=== PATIENT | male | born 1940 | race Caucasian/White ===

== ENCOUNTER → 2023-10-05 10:16 | Outpatient (REF) | payer MEDICARE, OTHER, SELFPAY ==
[2023-10-05 10:51] LABS: % Basophils 0.7 % (0-2); % Eosinophils 2.8 % (0-6); % Immature Granulocytes 0.3 % (0-0.5); % Lymphocytes 12.6 % (20.5-51.1); % Monocytes 6.7 % (1.7-9.3); % Neutrophils 76.9 % (42.2-75.2); Absolute Basophils 0.1 10^3/uL (0-0.2); Absolute Eosinophils 0.3 10^3/uL (0-0.7); Absolute Lymphocytes 1.5 10^3/uL (1.2-3.4); Absolute Monocytes 0.8 10^3/uL (0.1-0.6); Absolute Neutrophils 8.9 10^3/uL (1.4-6.5); Hematocrit 41.8 % (39.0-52.0); Hemoglobin 13.4 g/dL (13.0-18.0); Mean Corp Hgb Conc. 32.1 g/dL (33.0-37.0); Mean Corpuscular Hgb 32.2 pg (27.0-31.0); Mean Corpuscular Volume 100.5 fL (80.0-94.0); Mean Platelet Volume 9.8 fL (7.4-10.4); Nucleated Red Blood Cells % 0 % (-); Platelet Count 291 10^3/uL (130-400); Red Blood Cell Count 4.16 10^6/uL (4.70-6.10); Red Cell Dist. Width 13.8 % (11.5-14.5); White Blood Cell Count 11.6 10^3/uL (4.8-10.8)
[2023-10-05 11:11] LABS: ALT (SGPT) 18 U/L (0-50); AST (SGOT) 26 U/L (17-59); Alkaline Phosphatase 105 U/L (38-126); Blood Urea Nitrogen 35 mg/dl (9-20); Calcium 9.6 mg/dl (8.4-10.2); Carbon Dioxide 30 mmol/L (22-30); Chloride 102 mmol/L (98-107); Glucose 95 mg/dl (70-99); Potassium 4.1 mmol/L (3.5-5.1); Sodium 140 mmol/L (135-145); Total Bilirubin 0.8 mg/dl (0.2-1.3); Total Protein 6.4 g/dl (6.3-8.2); eGFR > 60.00
[2023-10-05 11:28] LABS: Albumin 3.8 g/dl (3.5-5.0)
== END ==
LOC: REG 10:16
PROVIDERS: ATTENDING PHYSICIAN Internal Medicine Rheumatology; FAMILY PHYSICIAN Internal Medicine
DX: E55.9 Vitamin D deficiency, unspecified (principal); G60.9 Hereditary and idiopathic neuropathy, unspecified; J84.9 Interstitial pulmonary disease, unspecified; M11.20 Other chondrocalcinosis, unspecified site; M19.041 Primary osteoarthritis, right hand; M75.52 Bursitis of left shoulder; R76.8 Other specified abnormal immunological findings in serum; Z11.1 Encounter for screening for respiratory tuberculosis; Z11.59 Encounter for screening for other viral diseases; Z68.28 Body mass index [BMI] 28.0-28.9, adult; Z79.899 Other long term (current) drug therapy
CPT/HCPCS: 36415; 80053; 85025; 86140

== ENCOUNTER → 2023-11-02 10:19 | Outpatient (REF) | payer MEDICARE, OTHER, SELFPAY ==
[2023-11-02 10:53] LABS: % Basophils 0.6 % (0-2); % Eosinophils 1.7 % (0-6); % Immature Granulocytes 0.6 % (0-0.5); % Lymphocytes 10.2 % (20.5-51.1); % Monocytes 4.7 % (1.7-9.3); % Neutrophils 82.2 % (42.2-75.2); Absolute Basophils 0.1 10^3/uL (0-0.2); Absolute Eosinophils 0.2 10^3/uL (0-0.7); Absolute Immature Granulocytes 0.1 10^3/uL (0-0.05); Absolute Lymphocytes 1.3 10^3/uL (1.2-3.4); Absolute Monocytes 0.6 10^3/uL (0.1-0.6); Absolute Neutrophils 10.7 10^3/uL (1.4-6.5); Hematocrit 43.2 % (39.0-52.0); Hemoglobin 13.8 g/dL (13.0-18.0); Mean Corp Hgb Conc. 31.9 g/dL (33.0-37.0); Mean Corpuscular Hgb 31.8 pg (27.0-31.0); Mean Corpuscular Volume 99.5 fL (80.0-94.0); Mean Platelet Volume 10.1 fL (7.4-10.4); Nucleated Red Blood Cells % 0 % (-); Platelet Count 228 10^3/uL (130-400); Red Blood Cell Count 4.34 10^6/uL (4.70-6.10); Red Cell Dist. Width 14.2 % (11.5-14.5)
[2023-11-02 11:25] LABS: ALT (SGPT) 18 U/L (0-50); AST (SGOT) 26 U/L (17-59); Albumin 4.4 g/dl (3.5-5.0); Alkaline Phosphatase 66 U/L (38-126); Blood Urea Nitrogen 39 mg/dl (9-20); Calcium 9.5 mg/dl (8.4-10.2); Carbon Dioxide 27 mmol/L (22-30); Chloride 105 mmol/L (98-107); Glucose 88 mg/dl (70-99); Sodium 142 mmol/L (135-145); Total Bilirubin 0.7 mg/dl (0.2-1.3); eGFR > 60.00
[2023-11-02 11:30] LABS: Potassium 4.1 mmol/L (3.5-5.1)
== END ==
LOC: REG 10:19
PROVIDERS: ATTENDING PHYSICIAN Internal Medicine Rheumatology; FAMILY PHYSICIAN Internal Medicine
DX: J84.9 Interstitial pulmonary disease, unspecified (principal); Z79.899 Other long term (current) drug therapy
CPT/HCPCS: 36415; 80053; 85025

== ENCOUNTER → 2023-11-29 09:07 | Outpatient (REF) | payer MEDICARE, OTHER, SELFPAY | LOC: HWRAD 09:07 | PROVIDERS: ATTENDING PHYSICIAN Internal Medicine Critical Care Medicine; FAMILY PHYSICIAN Internal Medicine | DX: J84.9 Interstitial pulmonary disease, unspecified (principal) | CPT/HCPCS: 71250 ==

== ENCOUNTER → 2023-12-06 08:41 | Outpatient (REF) | payer MEDICARE, OTHER, SELFPAY ==
[2023-12-06 09:45] LABS: % Basophils 0.5 % (0-2); % Eosinophils 2.5 % (0-6); % Immature Granulocytes 0.5 % (0-0.5); % Lymphocytes 17.5 % (20.5-51.1); Absolute Basophils 0.1 10^3/uL (0-0.2); Absolute Eosinophils 0.3 10^3/uL (0-0.7); Absolute Immature Granulocytes 0.1 10^3/uL (0-0.05); Absolute Lymphocytes 1.9 10^3/uL (1.2-3.4); Absolute Monocytes 0.7 10^3/uL (0.1-0.6); Absolute Neutrophils 8.1 10^3/uL (1.4-6.5); Hematocrit 43.3 % (39.0-52.0); Hemoglobin 13.8 g/dL (13.0-18.0); Mean Corp Hgb Conc. 31.9 g/dL (33.0-37.0); Mean Corpuscular Hgb 31.3 pg (27.0-31.0); Mean Corpuscular Volume 98.2 fL (80.0-94.0); Mean Platelet Volume 10.6 fL (7.4-10.4); Nucleated Red Blood Cells % 0 % (-); Platelet Count 200 10^3/uL (130-400); Red Blood Cell Count 4.41 10^6/uL (4.70-6.10); Urine Albumin Negative (Neg - Trace); Urine Bilirubin Negative (Negative); Urine Character Clear (Clear); Urine Color Yellow; Urine Glucose Negative (Negative); Urine Ketone Negative (Negative); Urine Leukocyte Negative (Negative); Urine Nitrite Negative (Negative); Urine Occult Blood Negative (Negative); Urine Specific Gravity 1.015 (<1.030); Urine Urobilinogen Negative (Neg - 1+); White Blood Cell Count 11.1 10^3/uL (4.8-10.8)
[2023-12-06 10:35] LABS: ALT (SGPT) 19 U/L (0-50); AST (SGOT) 26 U/L (17-59); Albumin 4.1 g/dl (3.5-5.0); Alkaline Phosphatase 61 U/L (38-126); Blood Urea Nitrogen 37 mg/dl (9-20); Calcium 9.3 mg/dl (8.4-10.2); Carbon Dioxide 28 mmol/L (22-30); Chloride 104 mmol/L (98-107); Glucose 78 mg/dl (70-99); HDL Cholesterol 84 mg/dl; LDL Cholesterol, Calculated 41 mg/dl; Potassium 4.5 mmol/L (3.5-5.1); Sodium 139 mmol/L (135-145); Total Bilirubin 0.7 mg/dl (0.2-1.3); Total Cholesterol 149 mg/dl (50-199); Total Protein 6.6 g/dl (6.3-8.2); Triglyceride 124 mg/dl (10-149); Very Low Density Lipoprotein 24 mg/dl (0-30); eGFR > 60.00
[2023-12-07 00:35] LABS: Complement C3 123 mg/dl (88-165)
[2023-12-07 16:04] LABS: ds-DNA Ab, IgG Reflex To Titer 6 IU (0-24)
== END ==
LOC: REG 08:41
PROVIDERS: ATTENDING PHYSICIAN Internal Medicine; FAMILY PHYSICIAN Internal Medicine Rheumatology
DX: E55.9 Vitamin D deficiency, unspecified (principal); G60.9 Hereditary and idiopathic neuropathy, unspecified; J84.9 Interstitial pulmonary disease, unspecified; M11.20 Other chondrocalcinosis, unspecified site; M19.041 Primary osteoarthritis, right hand; M19.90 Unspecified osteoarthritis, unspecified site; M75.52 Bursitis of left shoulder; R76.8 Other specified abnormal immunological findings in serum; Z11.1 Encounter for screening for respiratory tuberculosis; Z11.59 Encounter for screening for other viral diseases; Z68.27 Body mass index [BMI] 27.0-27.9, adult; Z79.899 Other long term (current) drug therapy; E78.2 Mixed hyperlipidemia; I10 Essential (primary) hypertension; Z68.26 Body mass index [BMI] 26.0-26.9, adult; Z00.00 Encounter for general adult medical examination without abnormal findings
CPT/HCPCS: 36415; 80053; 80061; 81003; 85025; 86140; 86160; 86225

== ENCOUNTER 2023-12-27 06:13 | Day surgery (SDC) | payer MEDICARE, OTHER, SELFPAY ==
[2023-12-27] VITALS (7 sets, daily range): BP systolic 126–147; BP diastolic 67–104; BMI 25.8
== END 2023-12-27 11:04 | disposition home or self-care (01) ==
LOC: GI 06:13
PROVIDERS: ATTENDING PHYSICIAN Internal Medicine
DX: R91.8 Other nonspecific abnormal finding of lung field (principal); J18.9 Pneumonia, unspecified organism
CPT/HCPCS: 31624; 87070; 87102; 87116; 87205; 88112

== ENCOUNTER → 2024-01-09 13:26 | Outpatient (REF) | payer MEDICARE, OTHER, SELFPAY ==
[2024-01-09 14:07] LABS: Hematocrit 44.7 % (39.0-52.0); Hemoglobin 14.7 g/dL (13.0-18.0); Mean Corp Hgb Conc. 32.9 g/dL (33.0-37.0); Mean Corpuscular Hgb 31.4 pg (27.0-31.0); Mean Corpuscular Volume 95.5 fL (80.0-94.0); Mean Platelet Volume 9.9 fL (7.4-10.4); Platelet Count 228 10^3/uL (130-400); Red Blood Cell Count 4.68 10^6/uL (4.70-6.10); White Blood Cell Count 12.5 10^3/uL (4.8-10.8)
== END ==
LOC: SDSPAT 13:26
PROVIDERS: ATTENDING PHYSICIAN Specialist; FAMILY PHYSICIAN Internal Medicine
DX: Z01.818 Encounter for other preprocedural examination (principal)
CPT/HCPCS: 36415; 85027; 93005

== ENCOUNTER 2024-01-26 06:13 | Day surgery (SDC) | payer MEDICARE, OTHER, SELFPAY ==
--- NOTE | 2023-12-20 10:52 | CM ---
Addendum entered by Lilibeth Rodarte 01/25/24 11:54:
Spoke again with Elli at [facility]. She confirmed that she is holding a bed for patient at [facility]. She requested that additional clinical be sent to her through [facility] after surgery. She requested a 1:00 discharge time.
Report: [phone] [id number]

Call placed to patient and his . Update provided. They confirm that [facility] is their facility of choice if no bed at [facility]. plans to transport patient to [place] and is aware of requested 1:00 discharge time.
Addendum entered by Lilibeth Rodarte 01/23/24 12:31:
Spoke with Jessica at [facility]. She states that a financial application will need to be completed before they can say whether they can accept patient.
Call placed to [facility]. Spoke with Elli, admissions liaison ([phone]). Discussed referral. She states that there will not be a bed for patient at [facility] but, at this time, [facility] will have a bed for him. Will plan
to follow up with Elli later this week to confirm. She states that they will need CM to send updated clinical sent to them on Monday after patient has surgery.
Call placed to . Update provided. Will email her financial application from [facility] in case [place] does not have a bed.
Addendum entered by Lilibeth Rodarte 01/22/24 10:58:
Spoke with patient's again. She is also requesting a referral be sent to [facility]. She confirmed that if no beds available then she will bring patient home.
Preliminary referrals were sent to [facility] and [facility]. Will follow up re: acceptance and availability.
Addendum entered by PHYLLIS Mccall 01/18/24 09:46:
called to say she talked to staff at [facility] at [facility] Plan is for SNF at [facility] or [facility] at d/c. knows this will be private pay to SNF. IF no bed at either place plan is home with support from [facility] staff.
Original Note:
Patient is scheduled for a left shoulder, placement of spacer on 01/26/24. Spoke with patient and his , Sierra, prior to surgery via telephone to complete case management assessment and assess for discharge planning needs. Patient reports that
he lives with his in a one story home at [facility]. There are no steps to enter. He currently functions independently and uses a cane. He uses oxygen with activity and occasionally needs assist with carrying the portable tank. In addition to
the cane and oxygen, he has a raised toilet seat and rolling walker. He has had VN services through [facility]. He has been in [facility] for rehab. He has a prescription plan and uses [facility] in [place].
PCP is Teo Diaz
Discussed discharge plans. Patient and do not feel that he will be able to return home after surgery due to his left arm being in a sling and weakness in right UE. They would like him to go to a SNF. Explained that patient is having an
outpatient procedure and will not have the 3 night inpatient hospital stay required by medicare to go to a SNF. Also explained that if they still want him to go to a SNF, it will be private pay. They expressed understanding. They have spoken with
the Residential RN at [facility] who said she couldn't guarantee a bed for him in their SNF but can guarantee a bed in their Assisted Living; they will arrange for him to go to [place] at [facility]. Encouraged them to make sure this is in place before
surgery as he will likely only be in the hospital one night. Provided them with my contact information in case they need additional assistance.
[2024-01-09 13:45] VITALS: BMI 27.7
[2024-01-26] VITALS (10 sets, daily range): BP systolic 106–156; BP diastolic 63–103
[2024-01-26] MEDS: ANCEF 5 IV (17:35)
[2024-01-26] MEDS: ROXICODONE 5 MG PO (20:29)
[2024-01-26] MEDS: COLACE 100 MG PO (20:30)
[2024-01-26] MEDS: ROXICODONE 10 MG PO (23:14)
[2024-01-27] MEDS: ANCEF 5 IV (02:44)
[2024-01-27] MEDS: ROXICODONE 10 MG PO ×3 (02:56→13:21)
[2024-01-27 03:15] VITALS: BP 159/77
--- NOTE | 2024-01-27 06:38 | W.PN.ORTHO ---
Today's Communication / Plan
-
83-year-old male POD 1 left shoulder arthroscopy with placement of subacromial spacer balloon with subacromial decompression with extensive debridement 01/25 with [facility]
- The patient will remain in a sling for 3 weeks followed by physical therapy.
- The patient will follow-up in the office 7 to 10 days postop for suture removal and clinical evaluation.
- Digital range of motion. Active range of motion of the elbow, wrist, and hand as tolerated.
- Plan for discharge to SNF this afternoon. Post-op pain medication sent to pharmacy on file via [employer].
Assessment
.
Distal Motor Intact: Yes
Dressing:
Clean, dry and intact.
Assessment:
POD 1 left shoulder arthroscopy with placement of subacromial spacer balloon with subacromial decompression with extensive debridement 01/25 with [facility]
Plan
.
Surgery / Date: LSA with spacer balloon / 01/26/2024 [facility]
DVT Prophylaxis: Aspirin
Activity:
Out of bed.
PT/OT
Discharge Plan: SNF
Discharge Information:
Appreciate CM
Subjective
.
.:
Patient resting comfortably. Reports that he is feeling well this morning. Pain is well controlled.
Vital Signs and Labs
.
Vital Signs and Labs:
Temp Pulse Resp BP Pulse Ox
98.5 F 65 20 159/77 93
01/27/24 03:15 01/27/24 03:15 01/27/24 03:15 01/27/24 03:15 01/27/24 03:15
Physical Exam
-
Physical examination of the left shoulder reveals a bulky postoperative shoulder arthroscopy dressing to be intact. No drainage or surrounding erythema noted. No significant ecchymosis. Sling intact. Sensation intact to light touch over the
axillary nerve distribution. Digital range of motion intact.
--- NOTE | 2024-01-27 06:55 | W.DS.TRANS ---
DC Summary - Genetic Supervisor
-
Discharge Instructions:
Discharge Diagnosis/Procedures Left shoulder arthroscopy with placement of
spacer balloon and extensive debridement
Diet As tolerated
Activity No strenuous activity
Additional Activity Sling to Shoulder x 3 weeks post-op
Driving Restrictions Not until seen by your Dr
Bathing Restrictions OK to Shower
Instructions:
Stand-Alone Forms:
Changes to Home Medications: No
Discharge Medications:
DC Medications w/original date entered in [employer]
atorvastatin 10 mg tablet 10 mg PO QPM High Cholesterol 12/20/16
gabapentin 400 mg capsule 800 mg PO QID Neurological Condition 12/20/16
aspirin 81 mg tablet,delayed release 81 mg PO HS Blood Clot Prevention/Tx 04/14/23
calcium carbonate 500 mg PO DAILY Supplement 04/14/23
celecoxib 200 mg capsule 200 mg PO BID Anti-Inflammatory 04/14/23
coenzyme Q10 200 mg capsule (Co Q-10) 200 mg PO BID Supplement 04/14/23
tamsulosin 0.4 mg capsule 0.4 mg PO HS Urinary Issue 04/14/23
enalapril maleate 10 mg tablet 10 mg PO BID 04/15/23
acetaminophen 650 mg tablet,extended release (Tylenol 8 Hour) 1,300 mg PO Q12H 12/27/23
sulfamethoxazole 400 mg-trimethoprim 80 mg tablet 1 tab PO MOWEFR 12/27/23
cholecalciferol (vitamin D3) 25 mcg (1,000 unit) capsule (Vitamin D3) 25 mcg PO DAILY 01/23/24
mycophenolate mofetil 250 mg capsule (CellCept) 250 mg PO BID 01/23/24
omeprazole 20 mg tablet,delayed release 20 mg PO DAILY 01/23/24
prednisone 10 mg tablet 20 mg PO DAILY 01/23/24
docusate sodium 100 mg capsule 100 mg PO BID Constipation #30 caps 01/27/24
oxycodone 5 mg tablet 5 mg PO Q4HPRN PRN mild pain 3 days #15 tabs 01/27/24
Home Medication Changes
Pending Results: No
Total time spent discharging patient (in min): 30 minutes
[2024-01-27 07:02] VITALS: BP 144/73
[2024-01-27] MEDS: PROTONIX 40 MG PO (08:53)
[2024-01-27] MEDS: CELLCEPT 250 MG PO (08:57)
[2024-01-27] MEDS: VASOTEC 10 MG PO (08:57)
[2024-01-27] MEDS: NEURONTIN 800 MG PO ×2 (08:58→13:22)
[2024-01-27] MEDS: DELTASONE 20 MG PO (08:58)
[2024-01-27] MEDS: CELEBREX 200 MG PO (08:58)
[2024-01-27] MEDS: COLACE 100 MG PO (08:58)
[2024-01-27] MEDS: OSCAL CAL 500 500 MG PO (08:58)
[2024-01-27] MEDS: VITAMIN D3 (cholecalciferol) 25 MCG PO (08:58)
[2024-01-27] MEDS: TYLENOL 1000 MG PO (09:14)
[2024-01-27 09:54] VITALS: BP 121/76; BP 159/78; PULSE 76; O2SAT 90
[2024-01-27 10:07] VITALS: BP 154/78
[2024-01-27 10:49] VITALS: BP 153/73
--- NOTE | 2024-01-27 11:01 | CM ---
Received call from [facility] requesting clinicals and [facility]. Sent via [employer].
Plan: Discharge to [facility]. Patient's spouse will provide transportation.
Call report to: , ext. [phone]
Fax report to:
[2024-01-27] MEDS: ZOFRAN 4 MG IV (13:21)
== END 2024-01-27 14:30 ==
LOC: SDS 06:13
PROVIDERS: ATTENDING PHYSICIAN Specialist; FAMILY PHYSICIAN Internal Medicine
DX: M75.122 Complete rotator cuff tear or rupture of left shoulder, not specified as traumatic (principal)
CPT/HCPCS: 29823; C9781; 97110; 97162; 97166; 97530; 97535; C1713

== ENCOUNTER → 2024-02-22 11:06 | Outpatient (REF) | payer MEDICARE, OTHER, SELFPAY ==
[2024-02-22 12:04] LABS: % Basophils 0.2 % (0-2); % Eosinophils 0.2 % (0-6); % Immature Granulocytes 0.3 % (0-0.5); % Lymphocytes 6.5 % (20.5-51.1); % Monocytes 2.3 % (1.7-9.3); % Neutrophils 90.5 % (42.2-75.2); Absolute Lymphocytes 0.8 10^3/uL (1.2-3.4); Absolute Monocytes 0.3 10^3/uL (0.1-0.6); Absolute Neutrophils 11.4 10^3/uL (1.4-6.5); Hematocrit 41.4 % (39.0-52.0); Mean Corp Hgb Conc. 31.4 g/dL (33.0-37.0); Mean Corpuscular Hgb 30.7 pg (27.0-31.0); Mean Corpuscular Volume 97.9 fL (80.0-94.0); Nucleated Red Blood Cells % 0 % (-); Platelet Count 170 10^3/uL (130-400); Red Blood Cell Count 4.23 10^6/uL (4.70-6.10); Red Cell Dist. Width 14.4 % (11.5-14.5); White Blood Cell Count 12.6 10^3/uL (4.8-10.8)
[2024-02-22 12:12] LABS: ALT (SGPT) 14 U/L (0-50); AST (SGOT) 21 U/L (17-59); Albumin 4.3 g/dl (3.5-5.0); Alkaline Phosphatase 50 U/L (38-126); Direct Bilirubin 0.1 mg/dl (0.0-0.4); Total Bilirubin 0.7 mg/dl (0.2-1.3); Total Protein 6.5 g/dl (6.3-8.2)
== END ==
LOC: REG 11:06
PROVIDERS: ATTENDING PHYSICIAN Internal Medicine Critical Care Medicine; FAMILY PHYSICIAN Internal Medicine; OTHER PHYSICIAN Internal Medicine Rheumatology
DX: Z51.81 Encounter for therapeutic drug level monitoring (principal); J84.112 Idiopathic pulmonary fibrosis
CPT/HCPCS: 36415; 80076; 85025

== ENCOUNTER → 2024-04-24 09:07 | Outpatient (REF) | payer MEDICARE, OTHER, SELFPAY ==
[2024-04-24 09:56] LABS: % Basophils 0.7 % (0-2); % Eosinophils 1.9 % (0-6); % Immature Granulocytes 0.4 % (0-0.5); % Lymphocytes 19.1 % (20.5-51.1); % Monocytes 6.8 % (1.7-9.3); % Neutrophils 71.1 % (42.2-75.2); Absolute Basophils 0.1 10^3/uL (0-0.2); Absolute Eosinophils 0.2 10^3/uL (0-0.7); Absolute Lymphocytes 1.8 10^3/uL (1.2-3.4); Absolute Monocytes 0.6 10^3/uL (0.1-0.6); Absolute Neutrophils 6.5 10^3/uL (1.4-6.5); Hematocrit 44.1 % (39.0-52.0); Hemoglobin 13.9 g/dL (13.0-18.0); Mean Corp Hgb Conc. 31.5 g/dL (33.0-37.0); Mean Corpuscular Volume 98.2 fL (80.0-94.0); Mean Platelet Volume 10.6 fL (7.4-10.4); Nucleated Red Blood Cells % 0 % (-); Platelet Count 180 10^3/uL (130-400); Red Blood Cell Count 4.49 10^6/uL (4.70-6.10); Red Cell Dist. Width 14.1 % (11.5-14.5); White Blood Cell Count 9.2 10^3/uL (4.8-10.8)
[2024-04-24 10:17] LABS: Urine Albumin Negative (Neg - Trace); Urine Bilirubin Negative (Negative); Urine Character Clear (Clear); Urine Color Yellow; Urine Glucose Negative (Negative); Urine Ketone Negative (Negative); Urine Leukocyte Negative (Negative); Urine Nitrite Negative (Negative); Urine Occult Blood Negative (Negative); Urine Urobilinogen Negative (Neg - 1+)
[2024-04-24 10:50] LABS: ALT (SGPT) 16 U/L (0-50); AST (SGOT) 27 U/L (17-59); Albumin 4.5 g/dl (3.5-5.0); Alkaline Phosphatase 55 U/L (38-126); Blood Urea Nitrogen 36 mg/dl (9-20); Calcium 9.5 mg/dl (8.4-10.2); Carbon Dioxide 30 mmol/L (22-30); Chloride 101 mmol/L (98-107); Glucose 78 mg/dl (70-99); Potassium 4.2 mmol/L (3.5-5.1); Sodium 144 mmol/L (135-145); Total Bilirubin 0.9 mg/dl (0.2-1.3); Total Protein 6.8 g/dl (6.3-8.2); eGFR > 60.00
[2024-04-24 10:54] LABS: C-Reactive Protein < 5.00 mg/L (0.0-10.00)
== END ==
LOC: REG 09:07
PROVIDERS: ATTENDING PHYSICIAN Internal Medicine Rheumatology; FAMILY PHYSICIAN Internal Medicine
DX: E55.9 Vitamin D deficiency, unspecified (principal); G60.9 Hereditary and idiopathic neuropathy, unspecified; J84.9 Interstitial pulmonary disease, unspecified; M11.20 Other chondrocalcinosis, unspecified site; M19.041 Primary osteoarthritis, right hand; M19.90 Unspecified osteoarthritis, unspecified site
CPT/HCPCS: 36415; 80053; 81003; 85025; 86140

== ENCOUNTER → 2024-05-04 11:18 | Outpatient (REF) | payer MEDICARE, OTHER, SELFPAY ==
[2024-05-04 12:22] LABS: % Basophils 0.2 % (0-2); % Eosinophils 0.2 % (0-6); % Immature Granulocytes 0.3 % (0-0.5); % Lymphocytes 8.1 % (20.5-51.1); % Neutrophils 88.2 % (42.2-75.2); Absolute Monocytes 0.4 10^3/uL (0.1-0.6); Absolute Neutrophils 10.8 10^3/uL (1.4-6.5); Hematocrit 40.9 % (39.0-52.0); Hemoglobin 13.2 g/dL (13.0-18.0); Mean Corp Hgb Conc. 32.3 g/dL (33.0-37.0); Mean Corpuscular Hgb 31.8 pg (27.0-31.0); Mean Corpuscular Volume 98.6 fL (80.0-94.0); Mean Platelet Volume 10.9 fL (7.4-10.4); Nucleated Red Blood Cells % 0 % (-); Platelet Count 197 10^3/uL (130-400); Red Blood Cell Count 4.15 10^6/uL (4.70-6.10); White Blood Cell Count 12.2 10^3/uL (4.8-10.8)
[2024-05-04 13:09] LABS: ALT (SGPT) 18 U/L (0-50); AST (SGOT) 26 U/L (17-59); Albumin 4.1 g/dl (3.5-5.0); Alkaline Phosphatase 58 U/L (38-126); Direct Bilirubin 0.2 mg/dl (0.0-0.4); Total Bilirubin 0.6 mg/dl (0.2-1.3); Total Protein 6.5 g/dl (6.3-8.2)
== END ==
LOC: REG 11:18
PROVIDERS: ATTENDING PHYSICIAN Internal Medicine Critical Care Medicine; FAMILY PHYSICIAN Internal Medicine
DX: Z51.81 Encounter for therapeutic drug level monitoring (principal); J84.112 Idiopathic pulmonary fibrosis
CPT/HCPCS: 36415; 80076; 85025

== ENCOUNTER → 2024-06-08 09:23 | Outpatient (REF) | payer MEDICARE, OTHER, SELFPAY ==
[2024-06-08 11:20] LABS: Total Cholesterol 184 mg/dl (50-199); Triglyceride 137 mg/dl (10-149); Very Low Density Lipoprotein 27 mg/dl (0-30)
[2024-06-08 11:33] LABS: HDL Cholesterol 119 mg/dl; LDL Cholesterol, Calculated 38 mg/dl
== END ==
LOC: REG 09:23
PROVIDERS: ATTENDING PHYSICIAN Internal Medicine; REFERRING PHYSICIAN Internal Medicine Rheumatology
DX: Z00.01 Encounter for general adult medical examination with abnormal findings (principal); E78.2 Mixed hyperlipidemia; I10 Essential (primary) hypertension; Z68.26 Body mass index [BMI] 26.0-26.9, adult
CPT/HCPCS: 36415; 80061

== ENCOUNTER → 2024-06-25 15:11 | Outpatient (REF) | payer MEDICARE, OTHER, SELFPAY ==
[2024-06-25 16:33] LABS: % Basophils 0.1 % (0-2); % Eosinophils 0.1 % (0-6); % Immature Granulocytes 1.6 % (0-0.5); % Lymphocytes 7.6 % (20.5-51.1); % Monocytes 3.5 % (1.7-9.3); % Neutrophils 87.1 % (42.2-75.2); Absolute Immature Granulocytes 0.2 10^3/uL (0-0.05); Absolute Lymphocytes 0.8 10^3/uL (1.2-3.4); Absolute Monocytes 0.4 10^3/uL (0.1-0.6); Hematocrit 44.1 % (39.0-52.0); Hemoglobin 14.3 g/dL (13.0-18.0); Mean Corp Hgb Conc. 32.4 g/dL (33.0-37.0); Mean Corpuscular Hgb 32.9 pg (27.0-31.0); Mean Corpuscular Volume 101.6 fL (80.0-94.0); Mean Platelet Volume 11.1 fL (7.4-10.4); Nucleated Red Blood Cells % 0 % (-); Platelet Count 187 10^3/uL (130-400); Red Blood Cell Count 4.34 10^6/uL (4.70-6.10); Red Cell Dist. Width 13.6 % (11.5-14.5); White Blood Cell Count 10.3 10^3/uL (4.8-10.8)
[2024-06-25 16:48] LABS: Urine Albumin Trace (Neg - Trace); Urine Bilirubin Negative (Negative); Urine Character Clear (Clear); Urine Color Yellow; Urine Glucose Negative (Negative); Urine Ketone Negative (Negative); Urine Leukocyte 1+ (Negative); Urine Nitrite Negative (Negative); Urine Occult Blood 3+ (Negative); Urine Specific Gravity 1.015 (<1.030); Urine Urobilinogen Negative (Neg - 1+)
[2024-06-25 16:55] LABS: ALT (SGPT) 18 U/L (0-50); AST (SGOT) 25 U/L (17-59); Albumin 4.5 g/dl (3.5-5.0); Alkaline Phosphatase 48 U/L (38-126); Blood Urea Nitrogen 42 mg/dl (9-20); Calcium 9.7 mg/dl (8.4-10.2); Carbon Dioxide 29 mmol/L (22-30); Chloride 101 mmol/L (98-107); Creatine Phosphokinase 69 U/L (55-170); Glucose 115 mg/dl (70-99); Potassium 4.8 mmol/L (3.5-5.1); Sodium 142 mmol/L (135-145); Total Bilirubin 0.4 mg/dl (0.2-1.3); eGFR > 60.00
[2024-06-25 17:19] LABS: Urine Bacteria Many (Negative); Urine Red Blood Cell 0-2 /HPF (0-2)
[2024-06-25 17:27] LABS: Hepatitis B Surface Antigen Negative (Negative)
[2024-06-25 17:44] LABS: Hepatitis B Core Ab, Total Negative (Negative); Hepatitis C Antibody Negative (Negative)
[2024-06-26 23:37] LABS: Complement C3 139 mg/dl (88-165)
[2024-06-27 23:39] LABS: ds-DNA Ab, IgG Reflex To Titer 7 IU (0-24)
[2024-06-28 00:35] LABS: ANA, IgG Reflex to HEp-2 None Detected (None Detected)
== END ==
LOC: RAD 15:11
PROVIDERS: ATTENDING PHYSICIAN Internal Medicine Rheumatology; FAMILY PHYSICIAN Internal Medicine; OTHER PHYSICIAN Internal Medicine Critical Care Medicine
DX: G60.9 Hereditary and idiopathic neuropathy, unspecified (principal); J84.9 Interstitial pulmonary disease, unspecified; M11.20 Other chondrocalcinosis, unspecified site; M19.041 Primary osteoarthritis, right hand; M19.90 Unspecified osteoarthritis, unspecified site; R76.8 Other specified abnormal immunological findings in serum; Z11.1 Encounter for screening for respiratory tuberculosis; Z11.59 Encounter for screening for other viral diseases; Z68.27 Body mass index [BMI] 27.0-27.9, adult; Z79.899 Other long term (current) drug therapy
CPT/HCPCS: 36415; 80053; 81003; 81015; 82550; 85025; 86038; 86140; 86160; 86225; 86704; 86803; 87340

== ENCOUNTER → 2024-06-26 11:09 | Outpatient (REF) | payer MEDICARE, OTHER, SELFPAY ==
[2024-06-28 16:01] LABS: Quantiferon Mitogen minus NIL 0.96 IU/mL; Quantiferon NIL 0.05 IU/mL; Quantiferon TB Gold Plus Negative (Negative)
== END ==
LOC: REG 11:09
PROVIDERS: ATTENDING PHYSICIAN Internal Medicine Rheumatology; OTHER PHYSICIAN Internal Medicine Critical Care Medicine
DX: G60.9 Hereditary and idiopathic neuropathy, unspecified (principal); J84.9 Interstitial pulmonary disease, unspecified; M11.20 Other chondrocalcinosis, unspecified site; M19.90 Unspecified osteoarthritis, unspecified site; R76.8 Other specified abnormal immunological findings in serum; Z11.1 Encounter for screening for respiratory tuberculosis; Z11.59 Encounter for screening for other viral diseases; Z68.27 Body mass index [BMI] 27.0-27.9, adult; Z79.899 Other long term (current) drug therapy
CPT/HCPCS: 36415; 86480

== ENCOUNTER → 2024-07-03 11:47 | Outpatient (REF) | payer MEDICARE, OTHER, SELFPAY ==
[2024-07-03 13:59] LABS: Urine Albumin 1+ (Neg - Trace); Urine Bilirubin Negative (Negative); Urine Character Very Cloudy (Clear); Urine Color Yellow; Urine Glucose Negative (Negative); Urine Ketone Negative (Negative); Urine Leukocyte 2+ (Negative); Urine Nitrite Negative (Negative); Urine Occult Blood 3+ (Negative); Urine Specific Gravity 1.015 (<1.030); Urine Urobilinogen Negative (Neg - 1+)
[2024-07-03 15:15] LABS: Urine Amorphous Seen; Urine Bacteria Many (Negative); Urine Red Blood Cell 30-40 /HPF (0-2); Urine Squamous Cell 0-2 /LPF (Few); Urine White Cell >100 /HPF (0-5)
== END ==
LOC: REG 11:47
PROVIDERS: ATTENDING PHYSICIAN Physician Assistant; FAMILY PHYSICIAN Internal Medicine; REFERRING PHYSICIAN Internal Medicine Critical Care Medicine
DX: R31.9 Hematuria, unspecified (principal)
CPT/HCPCS: 81003; 81015; 87077; 87086; 87186

== ENCOUNTER → 2024-07-04 15:12 | Outpatient (REF) | payer MEDICARE, OTHER, SELFPAY | LOC: HWRAD 15:12 | PROVIDERS: ATTENDING PHYSICIAN Internal Medicine Critical Care Medicine; FAMILY PHYSICIAN Internal Medicine; REFERRING PHYSICIAN Internal Medicine Rheumatology | DX: J84.9 Interstitial pulmonary disease, unspecified (principal); J96.10 Chronic respiratory failure, unspecified whether with hypoxia or hypercapnia | CPT/HCPCS: 71250 ==

== ENCOUNTER → 2024-07-16 15:56 | Outpatient (REF) | payer MEDICARE, OTHER, SELFPAY ==
[2024-07-16 16:24] LABS: Urine Albumin Trace (Neg - Trace); Urine Bilirubin Negative (Negative); Urine Character Clear (Clear); Urine Color Yellow; Urine Glucose Negative (Negative); Urine Ketone Negative (Negative); Urine Leukocyte Trace (Negative); Urine Nitrite Negative (Negative); Urine Occult Blood Negative (Negative); Urine Urobilinogen Negative (Neg - 1+)
[2024-07-16 16:51] LABS: Urine Bacteria Few (Negative); Urine Mucus Few; Urine Red Blood Cell None Seen /HPF (0-2); Urine White Cell 0-2 /HPF (0-5)
== END ==
LOC: REG 15:56
PROVIDERS: ATTENDING PHYSICIAN Physician Assistant; FAMILY PHYSICIAN Internal Medicine
DX: R31.9 Hematuria, unspecified (principal)
CPT/HCPCS: 81003; 81015

== ENCOUNTER → 2024-07-24 13:55 | Outpatient (REF) | payer MEDICARE, OTHER, SELFPAY | LOC: HWRCS 13:55 | PROVIDERS: ATTENDING PHYSICIAN Internal Medicine Cardiovascular Disease; FAMILY PHYSICIAN Internal Medicine | DX: I35.0 Nonrheumatic aortic (valve) stenosis (principal) | CPT/HCPCS: 93306 ==

== ENCOUNTER 2024-09-18 10:53 | Emergency (ER) | payer MEDICARE, OTHER, SELFPAY ==
[2024-09-18 10:53] VITALS: BMI 25.3
[2024-09-18 10:55] VITALS: BP 119/58
[2024-09-18 11:31] VITALS: BP 104/64
--- NOTE | 2024-09-18 11:42 | ED.GENMED ---
History of Present Illness
General
Chief Complaint: Male Genito-Urinary Symptoms
Source: patient and spouse
Time Seen by Provider: 09/18/24 11:29
History of Present Illness
History of Present Illness:
84 year old male with past medical history of pulmonary fibrosis requiring chronic oxygen on 4 L via nasal cannula, CVA, HTN, HLD, previous prostate cancer s/p radiation presenting to the ER for evaluation of urinary frequency/urgency that started
last night, history of similar in July and August that required antbiotic treatment, last completing a course of augmentin a few weeks ago with initial resolution of symptoms. Patinent denies any fevers, chills, rigors, nausea, vomiting, bowel
changes, scrotal/testicular pain or any other concerns. Patient has seen urology before due to prostate cancer and was told 3 years ago he may have some scar tissue build up from his radiation treatments that may be a cause for some urinary issues
going forward. Has not seen urology in 2-3 years.
Past History
Past History
ED Past Medical History: Cancer, COPD, CVA, HTN, Hypercholesterolemia and Other (DVT, not on Coumadin, he has an IVC filter)
ED Past Surgical History: Appendectomy and Orthopedic (Right hip replacement)
Social History
Tobacco: Non-smoker
Alcohol: Occasional
Drug: None
Personal:
Living: with family
Employment: Retired
Family History
Family History: Other (Noncontributory)
Review of Systems
Review of Systems
All Other Systems: ROS reviewed and negative except as documented in HPI and ROS
Phy Exam
Physical Exam
Physical Exam:
GENERAL: Alert , in no apparent distress
EYE: clear conjunctiva b/l
HEAD: NCAT
ENT: o/p clr, mmm.
CARDIAC: Regular rate and rhythm .
LUNGS: Diminished lung sounds throughout but no acute respiratory distress. Patient and report that he is at his usual baseline
ABDOMEN: Soft, no suprapubic fullness or tenderness, no r/g, no cvat
NEUROLOGICAL: Alert and oriented
SKIN: Warm and dry, skin intact.
MUSCULOSKELETAL: No edema, well perfused.
PSYCH: Normal and appropriate interaction.
Scores
Heart Failure Risk
Heart Failure Risk Score: Not Applicable
Heart Score for Chest Pain Patients
STEMI patient?: Not applicable
Withdrawal Assessment of Alcohol
Withdrawal Assessment Completed?: Not applicable
Course
Orders/Labs/Results
Orders:
Orders
09/18/24 11:43
Basic Metabolic Panel Urgent
Complete Blood Count/With Diff Urgent
09/18/24 11:58
Urinalysis Reflex To Culture Urgent
Date Specimen was Collected: 09/18/24
Time Specimen was Collected: 11:42
Urine Microscopic Reflex Cult Urgent
Urine Culture Urgent
SIMEON Source: U
Specimen Description:
Obtained by: Random
Date Specimen was Collected: 09/18/24
Time Specimen was Collected: 11:42
09/18/24 12:57
CefTRIAXone [Rocephin] 1,000 mg IV NOW STA
09/18/24 13:13
CT Abd/pel Without Iv Or Oral Urgent
Comment:
Reason For Exam: recurring UTI, possible stone
09/18/24 14:11
Case Management Consult ONCE
Case Management Consult: Other
Comment: needs coupon for fosfomycin
Abnormal Lab Results
09/18/24 09/18/24
11:43 11:58
WBC 12.5 H 10^3/uL
(4.8-10.8)
RBC 4.01 L 10^6/uL
(4.70-6.10)
Hgb 12.9 L g/dL
(13.0-18.0)
MCV 104.2 H fL
(80.0-94.0)
MCH 32.2 H pg
(27.0-31.0)
MCHC 30.9 L g/dL
(33.0-37.0)
MPV 10.6 H fL
(7.4-10.4)
Abs Immat Gran (auto) 0.1 H 10^3/uL
(0-0.05)
Absolute Neuts (auto) 10.9 H 10^3/uL
(1.4-6.5)
Absolute Lymphs (auto) 0.8 L 10^3/uL
(1.2-3.4)
Neutrophils % 87.0 H %
(42.2-75.2)
Lymphocytes % 6.3 L %
(20.5-51.1)
BUN 33 H mg/dl
(9-20)
Ur Occult Blood Reflex 3+ A
(Negative)
Urine Bilirubin 1+ A
(Negative)
Leukocyte Esterase Rfl 3+ A
(Negative)
Urine RBC 11-15 A /HPF
(0-2)
Urine WBC (Reflex) 26-30 A /HPF
(0-5)
Urine Bacteria (Reflex) Moderate A
(Negative)
Urine Albumin (Reflex) 2+ A
(Neg - Trace)
09/18/24 11:43
09/18/24 11:43
Vital Signs
Initial and Last Documented VS:
Initial Vital Signs
Temp Pulse Resp BP Pulse Ox
97.7 F 78 30 119/58 74
09/18/24 10:55 09/18/24 10:55 09/18/24 10:55 09/18/24 10:55 09/18/24 10:55
Last Documented Vital Signs
Temp Pulse Resp BP Pulse Ox
97.7 F 53 16 120/81 100
09/18/24 10:55 09/18/24 14:00 09/18/24 14:00 09/18/24 13:30 09/18/24 14:00
MDM/Problems Addressed
Differential Diagnosis Includes:
BPH, urethral/ureteral stricture, postradiation complication, urinary tract infection
MDM/Problems Addressed:
84-year-old male presenting to the ER for evaluation of urinary urgency/frequency/hesitancy that started last night. Has had 2 potential urinary tract infections within the last 2 months. Completed antibiotics a few weeks ago with reported
resolution of symptoms at that time. No fevers or infectious etiology. Bladder scan shows only 43 mL of urine within the bladder. No back or flank pain. Will check labs and urine. Triage note stated patient's oxygen was 78% on his home O2.
Patient and do not seem concerned about this noting that when patient exerts himself his oxygen does drop but he is at his usual respiratory baseline.
Chronic conditions affecting care: COPD and Cancer
*Pulse Oximetry
Patient hypoxic: no
*Apiculture Teacher Interpretation
Rate: normal
Rhythm: sinus
*Critical Care Note
Total Time (30-74mins, 75-104mins- exclusive of procedures): Not Applicable
Data Reviewed
Review of Other/Old Records Reveals: Labs, Records and Testing
Source: patient
Patient Management
Discussion with other providers: Dope Heater
Escalation/DeEscalation of care consider admission/obs:
Patient's labs show mild leukocytosis. UA shows 3+ microscopic blood, 3+ leukocytes, 26-30 WBCs. Given he has had 2 recent urinary tract infections combined with symptoms today I discussed the case with urology who states patient can follow-up in
office but would likely need infectious disease input given patient's previous urine cultures and multidrug resistance in the past. I reached out to infectious disease and based off patient's most recent urinary culture in June 2024 growing
Proteus with multidrug resistance they recommended we obtain CT scan to evaluate for any infected stones or prostatitis issues and would recommend a course of fosfomycin 1 tablet every 3 days for 7 total doses. I renotified urology about these
recommendations with ultimate plan for discharge home and outpatient management.
ED Attending Note
-
Portions of this chart may have been created with voice recognition software.� Occasional wrong word or��sound alike� substitutions may have occurred due to the inherent limitations of voice recognition software.
Discharge Plan
Departure
Patient Disposition: Home (Routine Discharge)
Date of Disposition: 09/18/24
Time of Disposition: 14:42
Patient with high blood pressure during this ER visit?: No
Discharge Problem:
Urinary tract infection
Instructions: Urinary tract infection in adults - ED discharge instructions
Prescriptions:
New
fosfomycin tromethamine 3 gram packet
3 g PO Q3D 21 Days Qty: 7 0RF
No Action
gabapentin 400 MG capsule
800 mg PO QID
atorvastatin 10 MG tablet
10 mg PO QPM
celecoxib 200 mg capsule
200 mg PO BID
aspirin 81 mg Tablet,Delayed Release (Dr/Ec)
81 mg PO HS
calcium carbonate 500 mg calcium (1,250 mg) Tablet
500 mg PO DAILY
tamsulosin 0.4 mg capsule
0.4 mg PO HS
coenzyme Q10 [Co Q-10] 200 mg Capsule
200 mg PO BID
enalapril maleate 10 mg Tablet
10 mg PO BID
acetaminophen [Tylenol 8 Hour] 650 mg Tablet Extended Release
1,300 mg PO Q12H
sulfamethoxazole-trimethoprim 400-80 mg Tablet
1 tab PO MOWEFR
mycophenolate mofetil [CellCept] 250 mg Capsule
250 mg PO BID
cholecalciferol (vitamin D3) [Vitamin D3] 25 mcg (1,000 unit) Capsule
25 mcg PO DAILY
omeprazole 20 mg Tablet,Delayed Release (Dr/Ec)
20 mg PO DAILY
prednisone 10 mg tablet
20 mg PO DAILY
Rx Instructions:
Taper: 60mg daily x 1 week, 50mg daily x 1 week, 40mg daily x 2 weeks
docusate sodium 100 mg Capsule
100 mg PO BID Qty: 30 0RF
oxycodone 5 mg Tablet
5 mg PO Q4HPRN PRN (Reason: mild pain) 3 Days Qty: 15 0RF
Rx Instructions:
Sent to [facility] [address] [place]
Referrals:
Loy Diaz MD [Family Provider] -
Jake Brown Jr., MD [Active] - (Urology - Please call for appointment)
Interventions
Interventions:
*Risk Screen - Suicide Last Done: 09/18/24 10:55
*General Assessment Last Done: 09/18/24 10:55
*Neglect/Abuse Screening Last Done: 09/18/24 10:55
ED- Fall Risk Assessment Last Done: 09/18/24 11:22
*ED COVID-19 Vaccine History Last Done: 09/18/24 10:55
*Nursing Disposition Last Done: 09/18/24 14:47
ED-Male Genitourinary Assessment Last Done: 09/18/24 11:22
Discharge Date and Time
Discharge Date/Time: 09/18/24 15:15
Print Language: YAKUT
[2024-09-18 11:52] LABS: % Basophils 0.4 % (0-2); % Eosinophils 0.8 % (0-6); % Immature Granulocytes 0.5 % (0-0.5); % Lymphocytes 6.3 % (20.5-51.1); Absolute Basophils 0.1 10^3/uL (0-0.2); Absolute Eosinophils 0.1 10^3/uL (0-0.7); Absolute Immature Granulocytes 0.1 10^3/uL (0-0.05); Absolute Lymphocytes 0.8 10^3/uL (1.2-3.4); Absolute Monocytes 0.6 10^3/uL (0.1-0.6); Absolute Neutrophils 10.9 10^3/uL (1.4-6.5); Hematocrit 41.8 % (39.0-52.0); Hemoglobin 12.9 g/dL (13.0-18.0); Mean Corp Hgb Conc. 30.9 g/dL (33.0-37.0); Mean Corpuscular Hgb 32.2 pg (27.0-31.0); Mean Corpuscular Volume 104.2 fL (80.0-94.0); Mean Platelet Volume 10.6 fL (7.4-10.4); Nucleated Red Blood Cells % 0 % (-); Platelet Count 196 10^3/uL (130-400); Red Blood Cell Count 4.01 10^6/uL (4.70-6.10); Red Cell Dist. Width 13.3 % (11.5-14.5); White Blood Cell Count 12.5 10^3/uL (4.8-10.8)
[2024-09-18 12:00] VITALS: BP 115/63
[2024-09-18 12:06] LABS: Urine Albumin 2+ (Neg - Trace); Urine Bilirubin 1+ (Negative); Urine Character Clear (Clear); Urine Color Yellow; Urine Glucose Negative (Negative); Urine Ketone Negative (Negative); Urine Leukocyte 3+ (Negative); Urine Nitrite Negative (Negative); Urine Occult Blood 3+ (Negative); Urine Urobilinogen 1+ (Neg - 1+)
[2024-09-18 12:19] LABS: Urine Bacteria Moderate (Negative); Urine Squamous Cell 0-2 /LPF (Few); Urine White Cell 26-30 /HPF (0-5)
[2024-09-18 12:30] VITALS: BP 113/69
[2024-09-18 12:40] LABS: Blood Urea Nitrogen 33 mg/dl (9-20); Calcium 9.2 mg/dl (8.4-10.2); Carbon Dioxide 30 mmol/L (22-30); Chloride 100 mmol/L (98-107); Estimated Creatinine Clearance 79 ml/min; Glucose 95 mg/dl (70-99); Potassium 4.2 mmol/L (3.5-5.1); Sodium 139 mmol/L (135-145); eGFR > 60.00
[2024-09-18 13:00] VITALS: BP 120/71
[2024-09-18] MEDS: ROCEPHIN 1000 MG IV (13:08)
[2024-09-18 13:30] VITALS: BP 120/81
--- NOTE | 2024-09-18 15:19 | CM ---
Patient and seen at bedside. Coupon for Good RX given. Per [facility] cost with coupon down to 191.58$ from 400.00. CM updated physician and patient eager to go home with to apartment with portable O2. Patient and indicated that they
have no other needs. CM will continue to follow for discharge planning needs.
Plan;home with
== END 2024-09-18 15:15 | disposition home or self-care (01) ==
LOC: EMR 10:53
PROVIDERS: Physician Assistant Medical; EMERGENCY PHYSICIAN Emergency Medicine; FAMILY PHYSICIAN Internal Medicine
DX: N39.0 Urinary tract infection, site not specified (principal); I10 Essential (primary) hypertension; E78.00 Pure hypercholesterolemia, unspecified; I25.10 Atherosclerotic heart disease of native coronary artery without angina pectoris; Z85.46 Personal history of malignant neoplasm of prostate; Z86.718 Personal history of other venous thrombosis and embolism; Z86.73 Personal history of transient ischemic attack (TIA), and cerebral infarction without residual deficits; Z87.440 Personal history of urinary (tract) infections; Z90.49 Acquired absence of other specified parts of digestive tract; Z92.3 Personal history of irradiation; Z99.81 Dependence on supplemental oxygen
CPT/HCPCS: 99284; 96374; 74176; 80048; 81003; 81015; 85025; 87086

== ENCOUNTER → 2024-10-02 15:27 | Outpatient (REF) | payer MEDICARE, OTHER, SELFPAY ==
[2024-10-02 17:08] LABS: Urine Albumin 2+ (Neg - Trace); Urine Bilirubin 1+ (Negative); Urine Character Clear (Clear); Urine Color Yellow; Urine Glucose Negative (Negative); Urine Ketone Negative (Negative); Urine Leukocyte 1+ (Negative); Urine Nitrite Negative (Negative); Urine Occult Blood Negative (Negative); Urine Specific Gravity 1.015 (<1.030); Urine Urobilinogen 1+ (Neg - 1+)
[2024-10-02 17:43] LABS: Urine Amorphous Seen; Urine Mucus Moderate; Urine Squamous Cell 0-2 /LPF (Few)
[2024-10-02 17:48] LABS: Urine Calcium Oxalate Crystals Present; Urine Red Blood Cell 0-2 /HPF (0-2)
== END ==
LOC: CLAB 15:27
PROVIDERS: ATTENDING PHYSICIAN Specialist
DX: N39.0 Urinary tract infection, site not specified (principal)
CPT/HCPCS: 81003; 81015; 87086

== ENCOUNTER → 2024-10-09 10:14 | Outpatient (REF) | payer MEDICARE, OTHER, SELFPAY | LOC: SDSPAT 10:14 | PROVIDERS: ATTENDING PHYSICIAN Specialist; FAMILY PHYSICIAN Internal Medicine | DX: N21.0 Calculus in bladder (principal) | CPT/HCPCS: 36415; 93005 ==

== ENCOUNTER 2024-10-15 06:17 | Day surgery (SDC) | payer MEDICARE, OTHER, SELFPAY ==
[2024-10-09 14:19] VITALS: BMI 26.8
[2024-10-15] VITALS (8 sets, daily range): BP systolic 121–155; BP diastolic 63–110; BMI 26.8
[2024-10-15] MEDS: NORMOSOL-R/PLASMALYTE-A 1000 IV (09:01)
[2024-10-15] MEDS: Pyridium 200 MG PO (11:05)
== END 2024-10-15 11:45 | disposition home or self-care (01) ==
LOC: SDS 06:17
PROVIDERS: ATTENDING PHYSICIAN Specialist; FAMILY PHYSICIAN Internal Medicine
DX: N21.0 Calculus in bladder (principal)
CPT/HCPCS: 52000

== ENCOUNTER 2025-06-29 14:10 | Observation (INO) | payer MEDICARE, OTHER, SELFPAY ==
[2025-06-29] VITALS (8 sets, daily range): BP systolic 104–132; BP diastolic 61–91; BMI 24.6
[2025-06-29] MEDS: ZOFRAN 4 MG IV (10:58)
[2025-06-29 11:10] LABS: Hematocrit 40.2 % (39.0-52.0); Hemoglobin 12.2 g/dL (13.0-18.0); Mean Corp Hgb Conc. 30.3 g/dL (33.0-37.0); Mean Corpuscular Volume 103.9 fL (80.0-94.0); Nucleated Red Blood Cells % 0 % (-); Platelet Count 153 10^3/uL (130-400); Red Cell Dist. Width 13.9 % (11.5-14.5)
[2025-06-29 11:18] LABS: INR 1.05; PT 14.0 Sec (11.4-14.6)
[2025-06-29 11:19] LABS: APTT 27.6 Sec (23.4-35.0)
[2025-06-29 11:25] LABS: ALT (SGPT) 17 U/L (0-50); AST (SGOT) 25 U/L (17-59); Albumin 4.2 g/dl (3.5-5.0); Alkaline Phosphatase 38 U/L (38-126); Blood Urea Nitrogen 45 mg/dl (9-20); Calcium 8.7 mg/dl (8.4-10.2); Carbon Dioxide 33 mmol/L (22-30); Chloride 102 mmol/L (98-107); Estimated Creatinine Clearance 70 ml/min; Glucose 119 mg/dl (70-99); Potassium 4.8 mmol/L (3.5-5.1); Sodium 138 mmol/L (135-145); Total Protein 6.6 g/dl (6.3-8.2); eGFR > 60.00
[2025-06-29 11:38] LABS: Troponin I 0.049 ng/ml
--- NOTE | 2025-06-29 13:34 | ED.GENMED ---
History of Present Illness
General
Chief Complaint: Breathing Problem
Source: patient
Exam Limitations: none
Time Seen by Provider: 06/29/25 11:03
Nursing documentation reviewed up to this point in time: agreed with
History of Present Illness
History of Present Illness:
84-year-old male with a past medical history as noted significant for interstitial lung disease, chronic respiratory failure on 8 L of oxygen, hypertension, hyperlipidemia, history of aortic stenosis, prior history of PE who presents to the
emergency department via EMS for evaluation after loss of consciousness. Patient reports that at baseline he is very dyspneic and his oxygen desaturates with minimal exertion. For long distances his helps him get around in a wheelchair.
Today he was going to [employer] with his and when he was getting out of the car and into the wheelchair he began to feel short of breath�this is not unusual for him with this degree of exertion. After he got settled in the wheelchair however his
shortness of breath did not improve and he began to feel lightheaded. His says that by the time they were into the [employer]dhist he seemed to have passed out and she called for help. Bystanders called medics to the scene. Per medics on their
arrival patient was groggy but awake. They transferred him to the stretcher and apparently during transport he had an additional syncopal episode. After this he became nauseated and vomited. He says he feels a bit better on arrival here. He says
he still feels more short of breath than usual. He denies any chest pain at any point in time. He denies any other acute complaints and says he was in his normal state of health prior to this episode. He sees Dr. Mayfield for cardiology and sees
Eric for pulmonology.
Past History
Past History
ED Past Medical History: Cancer, COPD, CVA, HTN, Hypercholesterolemia and Other (DVT, not on Coumadin, he has an IVC filter)
ED Past Surgical History: Appendectomy and Orthopedic (Right hip replacement)
Social History
Tobacco: Non-smoker
Alcohol: Occasional
Drug: None
Personal:
Living: with family
Employment: Retired
Family History
Family History: Other (Noncontributory)
Review of Systems
Review of Systems
All Other Systems: ROS reviewed and negative except as documented in HPI and ROS
Constitutional: Denies fever
Respiratory: Reports trouble breathing; Denies cough
Cardiac: Reports syncope; Denies chest pain
ABD/GI: Reports nausea and vomiting; Denies abdominal pain
: Denies flank pain
Musculoskeletal: Denies neck pain or back pain
Neurological: Denies headache
Phy Exam
Physical Exam
Physical Exam:
General: Awake, alert, oriented x3; no acute distress
Head: Normocephalic, atraumatic
Eyes: Conjunctiva normal, pupils equal round and reactive to light bilaterally
Throat: Airway intact, handling secretions
Neck: Trachea midline, supple without meningismus
Lungs: Very mild tachypnea, saturating appropriately on normal home oxygen; he has bilateral rales throughout all lung nicole
Heart: Regular rate and rhythm, systolic murmur noted
Abd: Soft, non distended, nontender
Neuro: Grossly intact
Skin: Warm and dry
Extremities: Warm and well-perfused
Scores
Heart Failure Risk
Heart Failure Risk Score: Not Applicable
Heart Score for Chest Pain Patients
STEMI patient?: Not applicable
Withdrawal Assessment of Alcohol
Withdrawal Assessment Completed?: Not applicable
Course
Orders/Labs/Results
Orders:
Orders
06/29/25 10:53
ECG [Electrocardiogram (*1)] Urgent
Reason for Study: Syncope
EKG- Treatment ONCE
06/29/25 10:55
Ondansetron Injectable [Zofran] 4 mg .ROUTE .STK-MED ONE
06/29/25 10:57
Ondansetron Injectable [Zofran] 4 mg IV NOW STA
06/29/25 10:59
Complete Blood Count/With Diff Urgent
Comprehensive Metabolic Panel Urgent
INR [Prothrombin Time] Urgent
NT-proBNP Urgent
PTT Urgent
Troponin I Urgent
06/29/25 11:05
CT Chest PE Study Urgent
Comment:
Reason For Exam: SOB, syncope, h/o PE
06/29/25 13:32
CARDIOLOGY CONSULT Urgent
Consulting Provider: Trino Monsivais
Was physician already notified: Yes
06/29/25 13:57
Admit/Transfer Patient As Directed
Co-Sign Provider:
Level of Care: Observation services
Assign to:: Telemetry
Physician / Group: caridad
Diagnosis: syncope
Reason for Telemetry: Arrhythmia
Date to Stop Telemetry: 07/02/25
Time to Stop Telemetry: 11:00
Code Status As Directed
Resuscitation Status: Do not resuscitate
Reached after discussion with pt or family/Healthcare POA: Yes
DNR Bracelet Application ONCE
PRN Pain Medication Management As Directed
May give lesser potent ordered pain med per pt: Yes
preference::
Protocol:: Medication orders for pain may be administered in a
manner that supports deferring to patient preference
when the pt is:
- Requesting an ordered lesser potent pain medication.
Least to most potent pain medications are defined
as: acetaminophen < NSAID < tramadol < opioids
(morphine, oxycodone, hydromorphone).
- Requesting a lesser dose of the same medication IF
ORDERED.
- Requesting a less intrusive route of administration
if both routes are prescribed by the provider (PO <
IV).
06/29/25 14:56
Troponin I Urgent
06/29/25 Dinner
Cholesterol Lowering
At Your Request: Limited Participation
Does patient need a safe tray?: No
Cholesterol Lowering: Sodium, 2 Gram
06/29/25 15:42
Troponin I Q6H
Prednisone [Deltasone] 15 mg PO .ASDIRECTED
acetaminophen [Tylenol 8 Hour] 1,300 mg PO Q12H
06/29/25 15:42
Echo 2D MMode Color/Doppler Routine
Reason for Study: syncope
PULMONARY CONSULT Routine
Consulting Provider: Carlitos Bledsoe
Was physician already notified: Yes
Activity As Directed
Activity Level: As Tolerated
Vital Signs As Directed
Frequency: Per unit guidelines
DX Deep Vein Thrombosis Video Routine
06/29/25 18:00
Gabapentin [Neurontin] 400 mg PO QID
06/29/25 20:00
Calcium Carbonate [Oscal Kwan 500] 500 mg PO BID
Enalapril [Vasotec] 10 mg PO BID
Heparin 5,000 units SC Q12
coenzyme Q10 [Co Q-10] 200 mg PO BID
06/29/25 21:42
Troponin I Q6H
06/29/25 22:00
Aspirin Low Dose EC [Aspir Low (Enteric Coated)] 81 mg PO HS
Tamsulosin [Flomax] 0.4 mg PO HS
06/30/25 03:42
Troponin I Q6H
06/30/25 06:00
Complete Blood Count/With Diff IN AM
Comprehensive Metabolic Panel IN AM
06/30/25 08:00
Methenamine Hippurate [Hiprex] 1 gram PO DAILY
omeprazole 20 mg PO DAILY
06/30/25 09:42
Troponin I Q6H
06/30/25 14:07
Sulfamethoxazole/Trimethoprim [Bactrim 400 mg/80 mg] 1 tablet PO MOWEFR
07/02/25 11:00
DC Protocol for Telemetry ONCE
Abnormal Lab Results
06/29/25
10:59
WBC 13.7 H 10^3/uL
(4.8-10.8)
RBC 3.87 L 10^6/uL
(4.70-6.10)
Hgb 12.2 L g/dL
(13.0-18.0)
MCV 103.9 H fL
(80.0-94.0)
MCH 31.5 H pg
(27.0-31.0)
MCHC 30.3 L g/dL
(33.0-37.0)
MPV 11.1 H fL
(7.4-10.4)
Absolute Neuts (auto) 11.9 H 10^3/uL
(1.4-6.5)
Absolute Lymphs (auto) 1.0 L 10^3/uL
(1.2-3.4)
Neutrophils % 86.9 H %
(42.2-75.2)
Lymphocytes % 7.1 L %
(20.5-51.1)
Carbon Dioxide 33 H mmol/L
(22-30)
BUN 45 H mg/dl
(9-20)
Glucose 119 H mg/dl
(70-99)
Troponin I 0.049 H* ng/ml
06/29/25 10:59
06/29/25 10:59
Vital Signs
Initial and Last Documented VS:
Initial Vital Signs
Pulse Resp Pulse Ox
82 22 80
06/29/25 10:52 06/29/25 10:52 06/29/25 10:52
Last Documented Vital Signs
Temp Pulse Resp BP Pulse Ox
36.9 C 58 19 117/62 98
06/29/25 11:03 06/29/25 14:00 06/29/25 14:00 06/29/25 14:55 06/29/25 14:00
MDM/Problems Addressed
Differential Diagnosis Includes:
Multiple syncopal episodes: Could be secondary to hypoxia in the setting of exertion and chronic respiratory failure, aortic stenosis, pulmonary embolism, dysrhythmia
MDM/Problems Addressed:
84-year-old male with history as noted presents after 2 syncopal episodes; he reports increased shortness of breath from his baseline. Vitals and exam are as above. His EKG shows sinus rhythm no AV block no acute ischemic changes. Labs were sent
off including a CBC which shows a leukocytosis similar to prior, marginal anemia similar. Chemistry shows elevated BUN similar to prior. His troponin is marginal�no chest pain but will trend. proBNP elevated. CT chest shows no PE questionable
edema on top of chronic interstitial changes. Will plan to admit patient for monitoring on telemetry�I discussed the case with cardiology for consultation. Discussed the case with hospitalist for admission.
Chronic conditions affecting care:
Chronic respiratory failure, history of lung disease, aortic stenosis
*Radiology
Radiology exam reviewed: radiology read reviewed
*Pulse Oximetry
SaO2: 96
Nasal Cannula flow liters per minute: 6
Oxygen Mode of Delivery: Room air
Patient hypoxic: no (Saturating appropriately at 96% on his normal home oxygen)
*EKG
Interpreted by ED Provider?: Yes
Comparison EKG: no changes
Heart Rate: 70
Rate: normal
Rhythm: sinus
[place]: normal axis
Interval: normal interval
QRS Pattern: normal QRS
Ischemia: T-wave inversion
*Critical Care Note
Total Time (30-74mins, 75-104mins- exclusive of procedures): Not Applicable
Data Reviewed
Review of Other/Old Records Reveals: Labs and Records
Source: patient, records, spouse and ambulance crew
Patient Management
Discussion with other providers: Hospitalist (Discussed with hospitalist) and Adult Ministries Director (Discussed with hardness inspector)
Escalation/DeEscalation of care consider admission/obs:
Admission indicated
ED Attending Note
-
Portions of this chart may have been created with voice recognition software.� Occasional wrong word or��sound alike� substitutions may have occurred due to the inherent limitations of voice recognition software.
Discharge Plan
Departure
Patient Disposition: Admit
Date of Disposition: 06/29/25
Time of Disposition: 13:33
Admit to doctor: Caridad
Presentation/result/management discussed w/ accepting MD/DO: Hospitalist
Discharge Problem:
Syncope, Dyspnea
Interventions
Interventions:
*Risk Screen - Suicide Last Done: 06/29/25 10:52
*General Assessment Last Done: 06/29/25 10:52
*Neglect/Abuse Screening Last Done: 06/29/25 10:52
*Nursing Disposition Last Done: 06/29/25 15:50
ED- Cardiac Assessment Last Done: 06/29/25 10:59
ED- Pulmonary Assessment Last Done: 06/29/25 10:59
--- NOTE | 2025-06-29 14:05 | HPS.HSE ---
Addendum entered and electronically signed by James Cook MD 06/29/25 14:10:
Patient on prednisone taper for ILD.
Original Note:
Family Physician
-
Family Physician: Teo Diaz
Chief Complaint
-
passing out
History of Present Illness
84-year-old male past medical history of DVT/pulmonary embolism status post IVC filter, moderate aortic stenosis, chronic HFpEF, interstitial lung disease on 6 L at rest and 8 L with activity, hypertension, history of intracranial hemorrhage,
hyperlipidemia, chronic back pain, osteoarthritis, spinal stenosis status post lumbar laminectomy and posterior spinal fusion, prostate cancer, GERD, presenting with syncopal episode twice today. The first episode occurred while he was getting into
the wheelchair. He was unresponsive for short period of time. This was associate with shortness of breath but he denied any chest pain. He denies any cough or fever.
The second episode of syncope occurred while in the ambulance.
Patient currently denies any symptoms.
Patient recently been on Ofev for interstitial lung disease but was stopped due to side effects. He is currently on palliative care.
His zipper machine operator is Dr. Mayfield. His surgical device sales representative is Dr. Reyes.
He drinks alcohol occasionally. He does not smoke.
Medical History
Past Medical History
Past Medical History: Reports Other (DVT/pulmonary embolism status post IVC filter, moderate aortic stenosis, chronic HFpEF, interstitial lung disease on 6 L at rest and 8 L with activity, hypertension, history of intracranial hemorrhage,
hyperlipidemia, chronic back pain, osteoarthritis, spinal stenosis status post lumbar laminectomy )
Past Surgical History: Reports None
Social History
Tobacco: Non-smoker
Alcohol: Occasional
Drug: None
Family History
Family History: Not pertinent
Allergies / Home Medications
Allergies reflects when Allergies were last updated in [facility].
Home Medications with original date entered in [facility]
Allergy/Medication List:
Allergies
Allergy/AdvReac Type Severity Reaction Status Date / Time
No Known Allergies Allergy Verified 06/29/25 11:00
Home Medications
gabapentin 400 mg capsule 400 - 800 mg PO QID Neurological Condition 12/20/16
aspirin 81 mg tablet,delayed release 81 mg PO HS Blood Clot Prevention/Tx 04/14/23
calcium carbonate 500 mg PO BID Supplement 04/14/23
coenzyme Q10 200 mg capsule (Co Q-10) 200 mg PO BID Supplement 04/14/23
tamsulosin 0.4 mg capsule 0.4 mg PO HS Urinary Issue 04/14/23
enalapril maleate 10 mg tablet 10 mg PO BID 04/15/23
acetaminophen 650 mg tablet,extended release (Tylenol 8 Hour) 1,300 mg PO Q12H 12/27/23
sulfamethoxazole 400 mg-trimethoprim 80 mg tablet 1 tab PO MOWEFR 12/27/23
omeprazole 20 mg tablet,delayed release 20 mg PO DAILY 01/23/24
prednisone 10 mg tablet 15 mg PO .ASDIRECTED 01/23/24
methenamine hippurate 1 gram tablet 1 g PO DAILY 10/08/24
Review of Systems
-
History Source: Patient
A 12 point ROS was completed and negative except as noted: Yes
Constitutional: Reports No Symptoms
EENT: Reports No Symptoms
Respiratory: Reports See HPI
Cardiac: Reports See HPI
Abdomen/GI: Reports No Symptoms
: Reports No Symptoms
Musculoskeletal: Reports No Symptoms
Skin: Reports No Symptoms
Neurological: Reports No Symptoms
Endocrine: Reports No Symptoms
Hematologic/Lymphatic: Reports No Symptoms
Psych: Reports No Symptoms
Physical Exam
Vital Signs
Vital Signs
Temp Pulse Resp BP Pulse Ox
98.4 F 61 16 110/64 96
06/29/25 11:03 06/29/25 13:00 06/29/25 13:00 06/29/25 11:15 06/29/25 13:34
Physical Exam
General: Well Developed, Well Nourished and No Apparent Distress
HEENT: NormoCephalic, Moist mucous membranes and Atraumatic
Respiratory: Clear
Cardiac: S1/S2 and Regular Rhythm; No Murmur or Rub
GI: Soft, Non Tender, Non Distended and Normal Bowel Sounds; No Organomegaly
Rectal: Deferred by Provider
Musculoskeletal: No Clubbing, No Cyanosis and No Edema
Skin: No Rash
Neuro: Nonfocal/grossly intact
Laboratory Results
-
06/29/25 10:59
06/29/25 10:59
Laboratory Results
PT 14.0 Sec (11.4-14.6) 06/29/25 10:59
INR 1.05 06/29/25 10:59
APTT 27.6 Sec (23.4-35.0) 06/29/25 10:59
Total Bilirubin 0.8 mg/dl (0.2-1.3) 06/29/25 10:59
AST 25 U/L (17-59) 06/29/25 10:59
ALT 17 U/L (0-50) 06/29/25 10:59
Alkaline Phosphatase 38 U/L (38-126) 06/29/25 10:59
Troponin I 0.049 ng/ml H* 06/29/25 10:59
Data Reviewed
-
Lab Data: Labs Reviewed by me
Old Records: Reviewed
Impression/Plan
-
IMPRESSION:
PLAN:
# Syncopal episodes possibly due to worsening aortic stenosis versus hypoxemia from ILD
-Significant systolic murmur on examination
-EKG shows sinus rhythm with PACs
-Troponin 0.049
-Cardiac BNP 180
-CT PE shows no evidence of pulmonary embolism, findings suggestive chronic consistent fibrotic changes possibly superimposed acute pulmonary edematous changes, cardiomegaly
-Clinically not in heart failure
-Trend troponins
- Check echo
- Cardiology consulted
- Pulmonary consulted
# History of interstitial lung disease
# Chronic hypoxemic respiratory failure on 6 L baseline at rest, 8 L with activity
- Patient no longer on mycophenolate
- Patient on prophylactic Bactrim
Moderate aortic stenosis
Chronic HFpEF
- Not overtly volume overloaded
History of PVCs
Essential hypertension
- Continue enalapril
History of DVT/pulmonary embolism status post IVC filter
History of intracranial hemorrhage
Hyperlipidemia
- Continue statin
Chronic back pain
Osteoarthritis
Spinal stenosis status post lumbar laminectomy
Posterior spinal fusion
Prostate cancer
- Continue tamsulosin
GERD
Erectile dysfunction
Peripheral neuropathy
- Continue gabapentin
DNR/DNI
DVT prophylaxis�heparin
Cardiac diet
--- NOTE | 2025-06-29 15:01 | CON.CAR ---
Consultation
Consultation Request
Date/Time Consultation Requested: 06/29/2025 at 1:32 PM
Date/Time Consultation Performed: 06/29/2025 at 2:30 PM
Requesting Provider: Huang Nice MD
Performing Provider: Trino Monsivais MD
Reason for Consultation: syncope
Medical History
-
Chief Complaint: Syncope
History of Present Illness:
84-year-old man with moderate aortic stenosis, interstitial lung disease on home O2 and palliative care, hypertension, and hyperlipidemia who presents with syncope for which cardiology is consulted. Patient reports he has ILD on chronic oxygen
therapy. Today he went to [employer] and his helped him from the car into the wheelchair. He was dyspneic with this. Dyspnea persisted when he got inside and when he was in the elevator, he was told that he passed out. His is not here to
provide collateral information. From the ER H&P, it seems that the first episode of syncope was actually while getting into the wheelchair and the second episode was in the ambulance. Patient reports that this has happened in the past in the
setting of low oxygen levels which is what he thinks is happening now.
Past Medical History
Past Medical History: None (As above)
Social History
Tobacco: Non-Smoker
Personal:
Family History
Family History: Reviewed & Not Pertinent
Allergies / Home Medications
Allergy/AdvReac Type Severity Reaction Status Date / Time
No Known Allergies Allergy Verified 06/29/25 11:00
�Medication �Instructions �Recorded �Confirmed �Type
gabapentin 400 mg capsule 400 - 800 mg PO QID Neurological 12/20/16 06/29/25 History
Condition
aspirin 81 mg tablet,delayed 81 mg PO HS Blood Clot 04/14/23 06/29/25 History
release Prevention/Tx
calcium carbonate 500 mg PO BID Supplement 04/14/23 06/29/25 History
coenzyme Q10 200 mg capsule (Co 200 mg PO BID Supplement 04/14/23 06/29/25 History
Q-10)
tamsulosin 0.4 mg capsule 0.4 mg PO HS Urinary Issue 04/14/23 06/29/25 History
enalapril maleate 10 mg tablet 10 mg PO BID 04/15/23 06/29/25 History
acetaminophen 650 mg 1,300 mg PO Q12H 12/27/23 06/29/25 History
tablet,extended release (Tylenol 8
Hour)
sulfamethoxazole 400 1 tab PO MOWEFR 12/27/23 06/29/25 History
mg-trimethoprim 80 mg tablet
omeprazole 20 mg tablet,delayed 20 mg PO DAILY 01/23/24 06/29/25 History
release
prednisone 10 mg tablet 15 mg PO .ASDIRECTED 01/23/24 06/29/25 History
methenamine hippurate 1 gram tablet 1 g PO DAILY 10/08/24 06/29/25 History
Review of Systems
-
All other systems: Negative unless noted
Physical Exam
Vital Signs
Temp Pulse Resp BP Pulse Ox
98.4 F 58 19 117/62 98
06/29/25 11:03 06/29/25 14:00 06/29/25 14:00 06/29/25 14:55 06/29/25 14:00
Lab Results
06/29/25 10:59
06/29/25 10:59
Troponin I 0.049 ng/ml H* 06/29/25 10:59
Soq-D-Xxowfbrqbbm Pept 180 pg/ml 06/29/25 10:59
Physical Exam
General: No Apparent Distress
Respiratory: Crackles
Cardiac: Regular Rhythm, Murmur (4/6 systolic murmur) and Peripheral Edema (1+ bilateral. He reports this is baseline.)
Impression / Plan
-
84-year-old man with moderate aortic stenosis, interstitial lung disease on home O2 and palliative care, hypertension, and hyperlipidemia who presents with syncope for which cardiology is consulted.
Cardiology: Mayfield
Syncope
-Suspect related to hypoxemia from ILD. CT PE negative. He has aortic stenosis but it was moderate by last echo in 07/2024 and murmur does not sound severe. Telemetry unremarkable thus far. ECG unchanged from prior.
-Monitor on telemetry overnight
-Check limited echo tomorrow
Troponin elevation
-Suspect due to acute nonischemic myocardial injury. No chest pain. ECG unchanged from prior.
-Trend to peak
Aortic stenosis
-TTE July 2024: LVEF 70-75%, moderate LVH, moderate AAS, mild AR, mild TR
-As above check limited echo tomorrow
Hypertension
-Continue home enalapril
Data Reviewed
-
EKG: Tracing Personally Visualized and interpreted (NSR, PACs, TWI inferior and anteroseptal leads)
CT Scan: Report Reviewed by me
Medical Tests (Nuc Med, Echo etc): Report Reviewed by me
Labs: Labs Reviewed by me and Discussed with Patient
--- NOTE | 2025-06-29 15:03 | EDCM ---
Reviewed chart and met with pt bedside in ED. Pt lives with his in one story home [place].
Independent in ADLs, personal care and ambulation at baseline, uses rolling walker.
Has home O2, uses 6L NC, supplied by [employer].
HAINES reviewed and signed, pt declined a copy.
Confirms prescription coverage.
No hx VN or SNF.
PCP: Teo Diaz
Pharmacy [facility]
CM will continue to follow for all discharge planning needs.
[2025-06-29 15:29] LABS: Troponin I 0.048 ng/ml
--- NOTE | 2025-06-29 15:49 | PTCARENOTE ---
06/29- Patient transferred and oriented to unit without issue. AAOX3, Currently NSR with PACs on [place]. Patient denies any current complaints.
[2025-06-29] MEDS: NEURONTIN 400 MG PO ×2 (17:13→21:13)
[2025-06-29] MEDS: TYLENOL 650 MG PO (17:15)
--- NOTE | 2025-06-29 17:22 | CON.PUL ---
Consultation
Consultation Request
Date/Time Consultation Requested: 06/29/2025 - 154
Date/Time Consultation Performed: 06/29/2025 - 1639
Requesting Provider: Dr. Cook
Performing Provider: Dr. Bledsoe
Reason for Consultation: SOB/ILD
Medical History
-
Chief Complaint: Unresponsive
History of Present Illness:
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
direct exposure to asbestos and former tobacco smoker who presents with unresponsiveness. Patient was at [facility] and became unresponsive and then became slightly confused. he said that when he usually gets ready to go to [facility] he gets short of
breath, but recovers on the drive there and that usually allows him to muster the strength to get into the charge. This time, he did not recover on the drive there, and by the time he got out of the car he was significantly short of breath with low
energy and lightheaded, which is what led to him being unresponsive. EMS was called. Blood glucose was 111. Patient then became unresponsive again in the ambulance. Pulse was never lost. The patient had recently been on Ofev for ILD but was
stopped due to side effects. He is currently on palliative care. CTA chest was obtained which showed no evidence of a PE, and there were findings suggestive of chronic interstitial fibrotic changes with possible superimposed acute pulmonary edema.
Pulmonary service now consulted for additional management/recommendations.
PMHx: History of ILD, chronic hypoxic respiratory failure (6 L/min at rest, 8 L/min with exertion), history of eosinophilia, valvular heart disease with history of aortic stenosis + AI, history of recurrent DVT/PE (previously provoked by ICH in 1994
s/p IVC�filter with a second event in 2003, ICH (1994) with residual right-sided weakness, osteoarthritis, former tobacco smoker (quit 1975), indirect exposure to asbestos, history of prostate cancer, spinal stenosis, GERD
PSHx: Bilateral hip replacement, lumbar laminectomy and posterior spinal fusion
Past Medical History
Past Medical History: Other (Above as per HPI)
Past Surgical History: Other (Above as per HPI)
Social History
Tobacco: Former Smoker (0.5-1 ppd for 13 y, quit in 1975)
Alcohol: None
Drug: None
Employment: Retired (Teacher)
Family History
Family History: Cancer ( Father: Skin cancer; mother: Skin cancer; daughter: Breast cancer), Hypertension (Mother) and Other ( Father: Glaucoma, asthma and history of stroke; mother: History of stroke, asthma)
Allergies / Home Medications
Allergies
Allergy/AdvReac Type Severity Reaction Status Date / Time
No Known Allergies Allergy Verified 06/29/25 11:00
Home Medications
�Medication �Instructions �Recorded �Confirmed �Last Taken �Type
gabapentin 400 mg capsule 400 - 800 mg PO QID Neurological 12/20/16 06/29/25 10/15/24 06:30 History
Condition
aspirin 81 mg tablet,delayed 81 mg PO HS Blood Clot 04/14/23 06/29/25 10/11/24 History
release Prevention/Tx
calcium carbonate 500 mg PO BID Supplement 04/14/23 06/29/25 10/13/24 History
coenzyme Q10 200 mg capsule (Co 200 mg PO BID Supplement 04/14/23 06/29/25 10/13/24 History
Q-10)
tamsulosin 0.4 mg capsule 0.4 mg PO HS Urinary Issue 04/14/23 06/29/25 10/15/24 06:30 History
enalapril maleate 10 mg tablet 10 mg PO BID 04/15/23 06/29/25 10/14/24 History
acetaminophen 650 mg 1,300 mg PO Q12H 12/27/23 06/29/25 10/15/24 06:30 History
tablet,extended release (Tylenol 8
Hour)
sulfamethoxazole 400 1 tab PO MOWEFR 12/27/23 06/29/25 10/07/24 History
mg-trimethoprim 80 mg tablet
omeprazole 20 mg tablet,delayed 20 mg PO DAILY 01/23/24 06/29/25 10/15/24 06:30 History
release
prednisone 10 mg tablet 15 mg PO .ASDIRECTED 01/23/24 06/29/25 10/15/24 06:30 History
methenamine hippurate 1 gram tablet 1 g PO DAILY 10/08/24 06/29/25 10/12/24 History
Review of Systems
-
History Source: Patient
All other systems: Negative unless noted
Vitals / Labs / Diagnostic Testing
Vital Signs
Temp Pulse Resp BP Pulse Ox
98.6 F 64 20 131/71 98
06/29/25 19:00 06/29/25 19:00 06/29/25 19:00 06/29/25 19:00 06/29/25 19:00
Lab Data
06/29/25 10:59
06/29/25 10:59
Laboratory Results
06/29/25
10:59
PT 14.0
INR 1.05
APTT 27.6
Diagnostic Testing:
Physical Exam
-
HEENT: Normocephalic and Anicteric
Cardiovascular: S1/S2, Murmur (KRISTI heard across anterior precordium) and Peripheral Edema (negative)
Respiratory: Wheeze (negative), Rales (bilateral) and Rhonchi (negative)
GI: Soft, Non Distended, Non Tender and Normal Bowel Sounds
Neurology: Awake, Alert, Oriented and Tremors (negative)
Skin: Warm and Dry
General: Respiratory Distress (negative), Comfortable, Fever (negative) and Chills (negative)
Assessment
-
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
osteoarthritis, and direct exposure to asbestos and former tobacco smoker who presents with unresponsiveness. Patient was at [facility] and became unresponsive and they became slightly confused. EMS was called. Blood glucose was 111. Patient then
became unresponsive again in the ambulance. Pulse was never lost. The patient had recently been on Ofev for ILD but was stopped due to side effects. He is currently on palliative care. CTA chest was obtained which showed no evidence of a PE, and
there were findings suggestive of chronic interstitial fibrotic changes with possible superimposed acute pulmonary edema. Pulmonary service now consulted for additional management/recommendations.
Chronic conditions MARKET PRESIDENT: History of ILD, chronic hypoxic respiratory failure (6 L/min at rest, 8 L/min with exertion), history of eosinophilia, valvular heart disease with history of aortic stenosis + AI, history of recurrent DVT/PE (previously
provoked by ICH in 1994 s/p IVC�filter with a second event in 2003, ICH (1994) with residual right-sided weakness, osteoarthritis, former tobacco smoker (quit 1975), indirect exposure to asbestos, history of prostate cancer, spinal stenosis, GERD
Impression:
#Syncopal event x 2 likely due to acute hypoxia
#Elevated troponin likely due to demand ischemia in the setting of acute hypoxia
#Leukocytosis likely due to chronic prednisone usage (15 mg daily)
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
#Very severe restrictive lung defect (T% predicted) via PFTs on 07/03/2024
#Physical deconditioning with poor exercise tolerance due in large part to ILD
#Chronic anemia
#Chronic respiratory failure with hypoxia with 6 L/min with rest and 8 L/min with activity
#History of ICH (1994) with residual right-sided paresis
#Former tobacco smoker (quit 1975)
#Valvular heart disease with moderate aortic stenosis, mild AI and mild TR via echo from 2023
#Pulmonary hypertension with moderately elevated PASP at 48 mmHg with normal RV size/function - this is due to Group 3 in setting of his ILD
Plan:
- Patient presented with syncope, and CTA chest showed chronic ILD with hyperattenuation with concern for acute pulmonary edema
- proBNP 180
- Hyperattenuation may be effect of contrast given it was a CT angio study
- Hyperattenuation is similar in appearance compared to prior CTA chest on 04/14/2023, although at that time in April 2023 there was more confluent opacities in the bases and the pulmonary artery trunk at that time was almost 10 mm larger than it
is now
- I do not feel that his current CTA chest is consistent with a volume overload state, and would hold off on diuresis at this time
- I also do not believe that he is having an acute exacerbation of his ILD, as he is only requiring his baseline amount of supplemental oxygen, currently at 6 L/min nasal cannula at rest and he says that he feels well and back to baseline
- I believe that he has poor exercise tolerance with significant physical deconditioning, and that he may have overexerted himself MARKET PRESIDENT which is what led him to the syncopal/unresponsive events
- I will check inflammatory markers with CRP + ESR, and if these are elevated, then we will consider temporarily increasing his prednisone dose with eventual weaning back down to his chronic dose
- If he ends up being on prednisone 20 mg or greater for longer than 30 days, then he will need PCP prophylaxis
- Unclear if he would be a candidate for pulmonary rehab or even be able to tolerate it - this can be discussed further in the pulmonary office with Dr. Reyes
- Continue trending troponin until it peaks
- Can give morphine if needed for SOB/dyspnea/air hunger, given that he is following with Palliative Care office via Dr. Burroughs - next visit 07/08/2025
- Maintain SpO2 at 89% or greater (given he has pulmonary HTN), using supplemental O2, weaning down as tolerated
- prn nebulized bronchodilators - not currently bronchospastic
- Incentive spirometer encouraged q1hr while awake
- Replete electrolytes with K>4, Mg>2
- Trend H/H and transfuse if needed to keep Hb>7g/dL; keep plt>20k, unless there is concern for bleeding then keep plt>50k
- Maintain euglycemia with goal BG >100 and <180
- DVT ppx: HSQ
Pulmonary service will continue to follow along.
Data:
CTA Chest 06/29/2025:
No evidence of central pulmonary embolism.
Findings suggesting chronic interstitial fibrotic changes with possible superimposed acute pulmonary edematous changes.
Cardiomegaly.
[2025-06-29] MEDS: OSCAL CAL 500 500 MG PO (19:50)
[2025-06-29] MEDS: VASOTEC 10 MG PO (19:50)
[2025-06-29] MEDS: HEPARIN 5000 UNITS SC (19:50)
[2025-06-29] MEDS: ASPIR LOW (ENTERIC COATED) 81 MG PO (21:13)
[2025-06-29] MEDS: FLOMAX 0.4 MG PO (21:13)
[2025-06-29 22:06] LABS: Troponin I 0.053 ng/ml
[2025-06-30] MEDS: TYLENOL PO (00:35)
[2025-06-30 03:06] VITALS: BP 132/61
[2025-06-30] MEDS: TYLENOL 650 MG PO ×2 (05:26→12:17)
[2025-06-30 06:49] LABS: Hematocrit 37.8 % (39.0-52.0); Hemoglobin 11.1 g/dL (13.0-18.0); Mean Corp Hgb Conc. 29.4 g/dL (33.0-37.0); Mean Corpuscular Volume 108.0 fL (80.0-94.0); Nucleated Red Blood Cells % 0 % (-); Platelet Count 141 10^3/uL (130-400); Red Cell Dist. Width 13.9 % (11.5-14.5)
[2025-06-30 06:57] LABS: Troponin I 0.050 ng/ml
[2025-06-30 07:05] VITALS: BP 120/60
[2025-06-30] MEDS: PROTONIX 40 MG PO (07:12)
[2025-06-30] MEDS: NEURONTIN 400 MG PO ×2 (07:12→12:18)
[2025-06-30] MEDS: HEPARIN 5000 UNITS SC (07:13)
[2025-06-30] MEDS: DELTASONE 15 MG PO (07:13)
[2025-06-30] MEDS: OSCAL CAL 500 500 MG PO (07:13)
[2025-06-30] MEDS: BACTRIM 400 MG/80 MG 1 TABLET PO (07:13)
[2025-06-30] MEDS: VASOTEC 10 MG PO (07:13)
[2025-06-30 07:33] LABS: ALT (SGPT) 15 U/L (0-50); AST (SGOT) 21 U/L (17-59); Albumin 3.5 g/dl (3.5-5.0); Alkaline Phosphatase 39 U/L (38-126); Blood Urea Nitrogen 42 mg/dl (9-20); C-Reactive Protein 11.70 mg/L (0.0-10.00); Calcium 8.5 mg/dl (8.4-10.2); Chloride 99 mmol/L (98-107); Estimated Creatinine Clearance 90 ml/min; Glucose 75 mg/dl (70-99); Magnesium 2.1 mg/dl (1.6-2.3); Potassium 4.5 mmol/L (3.5-5.1); Sodium 137 mmol/L (135-145); Total Protein 5.7 g/dl (6.3-8.2); eGFR > 60.00
[2025-06-30 08:17] LABS: Carbon Dioxide 38 mmol/L (22-30)
--- NOTE | 2025-06-30 09:34 | W.PN.CD ---
Today's Communication / Plan
-
Echo today
If OK then home without more telemetry
OK to see me in office routinely, next appt i 11/17/2025 at 2:40 pm
Impression / Plan
-
84-year-old man with moderate aortic stenosis, interstitial lung disease on home O2 and palliative care, hypertension, and hyperlipidemia who presents with syncope for which cardiology is consulted.
Cardiology: [facility]
Syncope
-Suspect related to hypoxemia from ILD. CT PE negative. He has aortic stenosis but it was moderate by last echo in 07/2024 and murmur does not sound severe. Telemetry unremarkable thus far. ECG unchanged from prior.
-Monitor on telemetry overnight
-Check limited echo tomorrow
-I do not think he will need outpatient telemetry at discharge
-I reviewed pulmonal note and agree no heart failure and syncope is not likely arrhythmic or from ischemic heart disease
-Tele so far negative
Troponin elevation
-Suspect due to acute nonischemic myocardial injury. No chest pain. ECG unchanged from prior.
-Trend to peak => peak 0.053
-If echo w/o wall motion then the troponin elevation will be from nonischemic myocardial injury
Aortic stenosis
-TTE July 2024: LVEF 70-75%, moderate LVH, moderate AAS, mild AR, mild TR
-As above check limited echo tomorrow
Hypertension
-Continue home enalapril
Interstitial lung disease on prednisone, O2
-pulmonary involved
Subjective: feels well
Physical Exam
Vital Signs/Labs
Vital Signs
Temp Pulse Resp BP Pulse Ox
98.6 F 57 16 120/60 92
06/30/25 07:05 06/30/25 07:13 06/30/25 07:05 06/30/25 07:13 06/30/25 07:05
06/29/25 06/30/25 07/01/25
06:59 06:59 06:59
Actual Weight 84.6 kg
06/30/25 05:56
06/30/25 05:56
PT 14.0 Sec (11.4-14.6) 06/29/25 10:59
INR 1.05 06/29/25 10:59
APTT 27.6 Sec (23.4-35.0) 06/29/25 10:59
Magnesium 2.1 mg/dl (1.6-2.3) 06/30/25 05:56
06/29/25
10:59
Aql-X-Yuawxujodqm Pept 180
LAB Results
06/29/25 06/29/25 06/29/25
10:59 14:56 15:42
Troponin I 0.049 H* 0.048 H* Cancelled
06/29/25 06/30/25
21:30 05:56
Troponin I 0.053 H* 0.050 H*
Physical Exam
Constitutional: No acute distress
EENT: Anicteric
Cardiovascular: Rhythm & rate is regular, Pedal edema is absent and Systolic murmur present
Respiratory: Respiratory effort normal and Lungs clear to auscul.
GI: Soft and Distention absent
Neuro/Psych: AO x 3
Data Reviewed
-
Date of Service: June 30, 2025
--- NOTE | 2025-06-30 09:38 | W.PN.PUL.V3 ---
Today's Communication / Plan
-
Echocardiogram
Telemetry monitoring
Pulmonary status at patient's baseline-currently on 4-5 L-at home he is on 6-[address] Reyes follow-up as needed
Assessment
-
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
osteoarthritis, and direct exposure to asbestos and former tobacco smoker who presents with unresponsiveness. Patient was at [facility] and became unresponsive and they became slightly confused. EMS was called. Blood glucose was 111. Patient then
became unresponsive again in the ambulance. Pulse was never lost. The patient had recently been on Ofev for ILD but was stopped due to side effects. He is currently on palliative care. CTA chest was obtained which showed no evidence of a PE, and
there were findings suggestive of chronic interstitial fibrotic changes with possible superimposed acute pulmonary edema. Pulmonary service now consulted for additional management/recommendations.
Chronic conditions SOCIAL MEDIA MANAGER: History of ILD, chronic hypoxic respiratory failure (6 L/min at rest, 8 L/min with exertion), history of eosinophilia, valvular heart disease with history of aortic stenosis + AI, history of recurrent DVT/PE (previously
provoked by ICH in 1994 s/p IVC�filter with a second event in 2003, ICH (1994) with residual right-sided weakness, osteoarthritis, former tobacco smoker (quit 1975), indirect exposure to asbestos, history of prostate cancer, spinal stenosis, GERD
Impression:
#Syncopal event x 2 likely due to acute hypoxia
#Elevated troponin likely due to demand ischemia in the setting of acute hypoxia
#Leukocytosis likely due to chronic prednisone usage (15 mg daily)
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
#Very severe restrictive lung defect (T% predicted) via PFTs on 07/03/2024
#Physical deconditioning with poor exercise tolerance due in large part to ILD
#Chronic anemia
#Chronic respiratory failure with hypoxia with 6 L/min with rest and 8 L/min with activity
#History of ICH (1994) with residual right-sided paresis
#Former tobacco smoker (quit 1975)
#Valvular heart disease with moderate aortic stenosis, mild AI and mild TR via echo from 2023
#Pulmonary hypertension with moderately elevated PASP at 48 mmHg with normal RV size/function - this is due to Group 3 in setting of his ILD
Plan:
Respiratory status appears to have improved
Continue supplemental oxygen as needed-currently on 4-5 L-at home he is on 6 to 8 L
Aspiration precautions
Nebulizers if needed-currently not bronchospastic
Prednisone 15 mg daily continues
Tndawve-Mnqsew-Tfbwrpejq-Monday
No further episodes of syncope
Hold off on diuresis
Cardiology following-correspondence reviewed
Echocardiogram pending
DVT prophylaxis-on heparin
GI prophylaxis-on pantoprazole
Nutrition
Early mobilization
Patient last saw Dr. Reyes 06/24/2025-recently due to gastrointestinal discontinued Ofev after taking for 14 months issues-patient transition to palliative care-initiated on morphine as needed-to follow-up as needed
There was a new IPF medication recently FDA approved-�Jascayd (nerandomilast)�
Data:
CTA Chest 06/29/2025:
No evidence of central pulmonary embolism.
Findings suggesting chronic interstitial fibrotic changes with possible superimposed acute pulmonary edematous changes.
Cardiomegaly.
Subjective Data
-
Date of Service:
Date of Service: June 30, 2025
Chief Complaint: Pulmonary Follow Up and Dyspnea Follow Up
Subjective:
Feels a little better, no chest pain, productive cough, abdominal pain, now on 4 to 5 L-at home 6 to 8 L
Review of Systems
General: Other ( per HPI)
Objective Data
Data Reviewed
Vital Signs / I&O:
Vital Signs
Temp Pulse Resp BP Pulse Ox
98.6 F 57 16 120/60 92
06/30/25 07:05 06/30/25 07:13 06/30/25 07:05 06/30/25 07:13 06/30/25 07:05
Intake and Output
06/29/25 06/30/25 07/01/25
06:59 06:59 06:59
Intake Total 480 / 480
Output Total 400 / 400
Balance 80 / 80
SaO2: 92
Nasal Cannula flow liters per minute: 2
Physical Exam
General: Respiratory Distress (n) and Comfortable
HEENT: Normocephalic, Anicteric and Moist Mucous Membranes
Cardiovascular: Regular Rhythm and Murmur
Respiratory: Crackles (Right greater than left base), Non-Labored Respirations, Accessory Resp Muscle Use (n) and Stridor (n)
GI: Soft, Non Distended and Non Tender
Neurology: Awake, Alert and No Motor Deficits
Skin: Warm, Good Color, Cyanosis (n), Jaundice (n) and Rash
Labs/Micro/Reports
Lab Data
06/30/25 05:56
06/30/25 05:56
Laboratory Results
06/29/25
10:59
PT 14.0
INR 1.05
APTT 27.6
[2025-06-30 11:15] VITALS: BP 138/69
[2025-06-30 12:40] LABS: Troponin I 0.047 ng/ml
--- NOTE | 2025-06-30 14:13 | W.PN.HOSP.TC ---
Today's Communication/Plan
-
Discharge home
Assessment / Plan
Assessment / Plan
Impression:
84-year-old male past medical history of DVT/pulmonary embolism status post IVC filter, moderate aortic stenosis, chronic HFpEF, interstitial lung disease on 6 L at rest and 8 L with activity, hypertension, history of intracranial hemorrhage,
hyperlipidemia, chronic back pain, osteoarthritis, spinal stenosis status post lumbar laminectomy and posterior spinal fusion, prostate cancer, GERD, presenting with syncopal episode twice today. The first episode occurred while he was getting into
the wheelchair. He was unresponsive for short period of time. This was associate with shortness of breath but he denied any chest pain. He denies any cough or fever. The second episode of syncope occurred while in the ambulance. Patient currently
denies any symptoms. Patient recently been on Ofev for interstitial lung disease but was stopped due to side effects. He is currently on palliative care.
Seen by both cardiology and pulmonology, cardiology commended echocardiogram.
Echocardiogram shows:
1. Normal biventricular size and systolic function without regional wall motion. Moderate to severe concentric left ventricular hypertrophy. No evidence of LV outflow tract gradient.
2. Moderate aortic stenosis with trace aortic regurgitation.
3. Moderate pulmonary hypertension.
4. Compared to the prior on 07/24/2024, proximal ascending aorta was 4.0 cm on the prior study today measured at 3.7 cm.
Cardiology okay for discharge and follow-up as outpatient.
Pulmonology also cleared for discharge and follow-up as op
Assessment/plan:
# Syncopal episodes possibly due to worsening aortic stenosis versus hypoxemia from ILD
-Significant systolic murmur on examination
-EKG shows sinus rhythm with PACs
-Troponin 0.049
-Cardiac BNP 180
-CT PE shows no evidence of pulmonary embolism, findings suggestive chronic consistent fibrotic changes possibly superimposed acute pulmonary edematous changes, cardiomegaly
-Clinically not in heart failure
-Trend troponins
- Check echo
- Cardiology consulted
- Pulmonary consulted
06/30
Seen by both cardiology and pulmonology, cardiology commended echocardiogram.
Echocardiogram shows:
1. Normal biventricular size and systolic function without regional wall motion. Moderate to severe concentric left ventricular hypertrophy. No evidence of LV outflow tract gradient.
2. Moderate aortic stenosis with trace aortic regurgitation.
3. Moderate pulmonary hypertension.
4. Compared to the prior on 07/24/2024, proximal ascending aorta was 4.0 cm on the prior study today measured at 3.7 cm.
Cardiology okay for discharge and follow-up as outpatient.
Pulmonology also cleared for discharge and follow-up as op
# History of interstitial lung disease
# Chronic hypoxemic respiratory failure on 6 L baseline at rest, 8 L with activity
- Patient no longer on mycophenolate
- Patient on prophylactic Bactrim
Moderate aortic stenosis
Chronic HFpEF
- Not overtly volume overloaded
History of PVCs
Essential hypertension
- Continue enalapril
History of DVT/pulmonary embolism status post IVC filter
History of intracranial hemorrhage
Hyperlipidemia
- Continue statin
Chronic back pain
Osteoarthritis
Spinal stenosis status post lumbar laminectomy
Posterior spinal fusion
Prostate cancer
- Continue tamsulosin
GERD
Erectile dysfunction
Peripheral neuropathy
- Continue gabapentin
DNR/DNI
DVT prophylaxis�heparin
Diet: Cardiac diet
Disposition: Discharge home
Total time spent on today's encounter was 65 minutes which included time spent in counseling the patient/family regarding diagnosis and treatment plan as listed above, goals of care, and symptom management. Case was discussed with nursing staff,
specialists, and care coordinators/case management. All labs and imaging personally reviewed by me. Remainder the time spent in detailed review of previous records, lab data, imaging, and other medical provider documentation.
Anticipated Discharge: Today
Subjective/Interval History
-
Date of Service: June 30, 2025
Patient seen and examined at bedside, denies any chest pain or shortness of breath, no abdominal pain, no nausea, no vomiting, no diarrhea or constipation.
Objective Data
-
Labs:
Laboratory Results
06/30/25
05:56
WBC 9.2
Hgb 11.1 L
Hct 37.8 L
Plt Count 141
Sodium 137
Potassium 4.5
Chloride 99
Carbon Dioxide 38 H
BUN 42 H
Creatinine 0.7
Glucose 75
Calcium 8.5
Total Bilirubin 0.6
AST 21
ALT 15
Alkaline Phosphatase 39
Vital Signs:
Vital Signs
Temp Pulse Resp BP Pulse Ox
98.6 F 60 18 138/69 96
06/30/25 11:15 06/30/25 11:15 06/30/25 11:15 06/30/25 11:15 06/30/25 11:15
I&O
06/29/25 06/30/25 07/01/25
06:59 06:59 06:59
Intake Total 480 / 480
Output Total 400 / 400
Balance 80 / 80
Physical Exam
-
General: Well Developed, Well Nourished, No Apparent Distress and Comfortable
HEENT: Normocephalic, Atraumatic, Moist Mucous Membranes, No Ptosis, PERRLA and Nose Appears Normal
Respiratory: Clear to Auscultation and Non Labored Respirations
Cardiac: Regular Rhythm, S1/S2 and Murmur
Breast: Deferred by me
GI: Soft, Nontender, Nondistended and Normal Bowel Sounds
Genito-urinary: No Costovertebral Tender
Musculoskeletal: No Clubbing, No Cyanosis and No Edema
Skin: Warm
Neuro: Awake, Alert, Oriented, AO x 3 and No Motor Deficits
Psych: Calm
Data Reviewed
-
Diagnostic Radiology: Image personally visualized and interpreted and Report Reviewed by me
CT Scan: Image personally visualized and interpreted and Report Reviewed by me
Ultrasound: Image personally visualized and interpreted and Report Reviewed by me
MRI: Image personally visualized and interpreted and Report Reviewed by me
Medical Tests (Nuc Med, Echo etc): Image personally visualized and interpreted and Report Reviewed by me
Labs: Labs Reviewed by me
Old Records: Reviewed
[2025-06-30 15:25] VITALS: BP 118/58
--- NOTE | 2025-06-30 15:45 | CM ---
patient seen at bedside
obs status
declines SNF/VN
hospitalist spoke with patient & , stable for dc today
states patient has palliative care that visitS
plan: home, palliative care following
to transport
--- NOTE | 2025-06-30 16:04 | W.DCSUMMARY ---
Discharge Summary
Discharge Data
Date of Admission: 06/29/25
Date of Discharge: 06/30/25
Total time spent discharging patient (in min): 40
-
Pending Results: No
Hospital Course
Hospital course
84-year-old male past medical history of DVT/pulmonary embolism status post IVC filter, moderate aortic stenosis, chronic HFpEF, interstitial lung disease on 6 L at rest and 8 L with activity, hypertension, history of intracranial hemorrhage,
hyperlipidemia, chronic back pain, osteoarthritis, spinal stenosis status post lumbar laminectomy and posterior spinal fusion, prostate cancer, GERD, presenting with syncopal episode twice today. The first episode occurred while he was getting into
the wheelchair. He was unresponsive for short period of time. This was associate with shortness of breath but he denied any chest pain. He denies any cough or fever. The second episode of syncope occurred while in the ambulance. Patient currently
denies any symptoms. Patient recently been on Ofev for interstitial lung disease but was stopped due to side effects. He is currently on palliative care.
Seen by both cardiology and pulmonology, cardiology commended echocardiogram.
Echocardiogram shows:
1. Normal biventricular size and systolic function without regional wall motion. Moderate to severe concentric left ventricular hypertrophy. No evidence of LV outflow tract gradient.
2. Moderate aortic stenosis with trace aortic regurgitation.
3. Moderate pulmonary hypertension.
4. Compared to the prior on 07/24/2024, proximal ascending aorta was 4.0 cm on the prior study today measured at 3.7 cm.
Cardiology okay for discharge and follow-up as outpatient.
Pulmonology also cleared for discharge and follow-up as op
During hospitalization patient was treated from the following
# Syncopal episodes possibly due to worsening aortic stenosis versus hypoxemia from ILD
-Significant systolic murmur on examination
-EKG shows sinus rhythm with PACs
-Troponin 0.049
-Cardiac BNP 180
-CT PE shows no evidence of pulmonary embolism, findings suggestive chronic consistent fibrotic changes possibly superimposed acute pulmonary edematous changes, cardiomegaly
-Clinically not in heart failure
-Trend troponins
- Check echo
- Cardiology consulted
- Pulmonary consulted
06/30
Seen by both cardiology and pulmonology, cardiology commended echocardiogram.
Echocardiogram shows:
1. Normal biventricular size and systolic function without regional wall motion. Moderate to severe concentric left ventricular hypertrophy. No evidence of LV outflow tract gradient.
2. Moderate aortic stenosis with trace aortic regurgitation.
3. Moderate pulmonary hypertension.
4. Compared to the prior on 07/24/2024, proximal ascending aorta was 4.0 cm on the prior study today measured at 3.7 cm.
Cardiology okay for discharge and follow-up as outpatient.
Pulmonology also cleared for discharge and follow-up as op
# History of interstitial lung disease
# Chronic hypoxemic respiratory failure on 6 L baseline at rest, 8 L with activity
- Patient no longer on mycophenolate
- Patient on prophylactic Bactrim
Moderate aortic stenosis
Chronic HFpEF
- Not overtly volume overloaded
History of PVCs
Essential hypertension
- Continue enalapril
History of DVT/pulmonary embolism status post IVC filter
History of intracranial hemorrhage
Hyperlipidemia
- Continue statin
Chronic back pain
Osteoarthritis
Spinal stenosis status post lumbar laminectomy
Posterior spinal fusion
Prostate cancer
- Continue tamsulosin
GERD
Erectile dysfunction
Peripheral neuropathy
- Continue gabapentin
DNR/DNI
DVT prophylaxis�heparin
Diet: Cardiac diet
Disposition: Discharge home
Total time spent on today's encounter was 40 minutes which included time spent in counseling the patient/family regarding diagnosis and treatment plan as listed above, goals of care, and symptom management. Case was discussed with nursing staff,
specialists, and care coordinators/case management. All labs and imaging personally reviewed by me. Remainder the time spent in detailed review of previous records, lab data, imaging, and other medical provider documentation.
Anticipated Discharge: Today
Discharge Plan
-
Patient Disposition: Home with Home Care
Discharge Diagnosis/Procedures: Syncope
Condition: Fair
Diet: Low Cholesterol
Activity: As tolerated
Referrals:
Loy Diaz MD [Family Provider, Internal Medicine]
Arpan Fontaine MD [Active, Pulmonary Medicine] - in two to four weeks
Huang Mayfield MD [Active, Cardiology] - in two to four weeks
Prescriptions:
Continued
gabapentin 400 MG capsule
400 - 800 mg PO QID
aspirin 81 mg Tablet,Delayed Release (Dr/Ec)
81 mg PO HS
calcium carbonate 500 mg calcium (1,250 mg) Tablet
500 mg PO BID
tamsulosin 0.4 mg capsule
0.4 mg PO HS
coenzyme Q10 [Co Q-10] 200 mg Capsule
200 mg PO BID
enalapril maleate 10 mg Tablet
10 mg PO BID
acetaminophen [Tylenol 8 Hour] 650 mg Tablet Extended Release
1,300 mg PO Q12H
sulfamethoxazole-trimethoprim 400-80 mg Tablet
1 tab PO MOWEFR
omeprazole 20 mg Tablet,Delayed Release (Dr/Ec)
20 mg PO DAILY
prednisone 10 mg tablet
15 mg PO .ASDIRECTED
Rx Instructions:
Taper: 60mg daily x 1 week, 50mg daily x 1 week, 40mg daily x 2 weeks
methenamine hippurate 1 gram Tablet
1 g PO DAILY
Discharge Orders:
Discharge Patient (As Directed); Ordered 06/30/25
Ordered By: Micaela Ibarra
Discharge Date and Time
Print Language: POLISH
== END 2025-06-30 17:20 | disposition home or self-care (01) ==
LOC: 4 WEST ACU 14:10
PROVIDERS: ADMITTING PHYSICIAN Hospitalist; ATTENDING PHYSICIAN General Practice; CONSULT PHYSICIAN Internal Medicine Critical Care Medicine; CONSULT PHYSICIAN Student in an Organized Health Care Education/Training Program; EMERGENCY PHYSICIAN Emergency Medicine; FAMILY PHYSICIAN Internal Medicine
DX: J84.9 Interstitial pulmonary disease, unspecified (principal); J96.11 Chronic respiratory failure with hypoxia; I11.0 Hypertensive heart disease with heart failure; I08.3 Combined rheumatic disorders of mitral, aortic and tricuspid valves; R55 Syncope and collapse; D72.829 Elevated white blood cell count, unspecified; D64.9 Anemia, unspecified; J44.9 Chronic obstructive pulmonary disease, unspecified; E78.00 Pure hypercholesterolemia, unspecified; R11.2 Nausea with vomiting, unspecified; M19.90 Unspecified osteoarthritis, unspecified site; G89.29 Other chronic pain; I50.32 Chronic diastolic (congestive) heart failure; K21.9 Gastro-esophageal reflux disease without esophagitis; M54.9 Dorsalgia, unspecified; G62.9 Polyneuropathy, unspecified; N52.9 Male erectile dysfunction, unspecified; I27.20 Pulmonary hypertension, unspecified; I49.1 Atrial premature depolarization; I35.2 Nonrheumatic aortic (valve) stenosis with insufficiency; I5A Non-ischemic myocardial injury (non-traumatic); R41.0 Disorientation, unspecified; Z66 Do not resuscitate; Z90.49 Acquired absence of other specified parts of digestive tract; Z96.643 Presence of artificial hip joint, bilateral; Z86.718 Personal history of other venous thrombosis and embolism; Z86.73 Personal history of transient ischemic attack (TIA), and cerebral infarction without residual deficits; Z86.711 Personal history of pulmonary embolism; Z79.899 Other long term (current) drug therapy; Z85.46 Personal history of malignant neoplasm of prostate; Z98.1 Arthrodesis status; Z95.828 Presence of other vascular implants and grafts; Z86.79 Personal history of other diseases of the circulatory system; Z99.81 Dependence on supplemental oxygen; Z77.090 Contact with and (suspected) exposure to asbestos; Z87.891 Personal history of nicotine dependence; Z80.8 Family history of malignant neoplasm of other organs or systems; Z82.3 Family history of stroke; Z82.5 Family history of asthma and other chronic lower respiratory diseases; Z79.52 Long term (current) use of systemic steroids
CPT/HCPCS: 71275; 80053; 83735; 83880; 84100; 84484; 85025; 85610; 85652; 85730; 86140; 93005; 93306; 96374; 99285; G0378; Q9967